=== PATIENT | female | born 1945 | race Caucasian/White ===

== ENCOUNTER 2019-10-26 09:24 | Outpatient (CLI) | payer MEDICARE, SELFPAY ==
--- NOTE | ~2019-10-26 | MM_ITS ---
EXAMINATION: MM screening marisol BI w barry HISTORY: Screening TECHNIQUE: Craniocaudal and mediolateral oblique 3-D tomosynthesis images were obtained and synthetic 2-D images were generated. CAD analysis was submitted and interpreted. COMPARISON: Comparison to multiple prior studies sequentially, with oldest reviewed study dated 09/13. BREAST PARENCHYMAL COMPOSITION: There are scattered areas of fibroglandular density. FINDINGS: Right breast asymmetries are stable. There is no evidence of suspicious mass, calcification , or architectural distortion to suggest malignancy in either breast. There has been no suspicious in terval change. IMPRESSION: 1. No mammographic evidence of malignancy. 2. Recommend routine screening mammography in one year. BI-RADS Category 2: Benign finding(s). Reviewed, dictated and finalized at location A.
== END 2019-10-26 09:25 | disposition home or self-care (01) ==
LOC: ANHIMG 09:29
PROVIDERS: PCP Family Medicine; Visit Provider Nurse Practitioner
DX: Z12.31 Encounter for screening mammogram for malignant neoplasm of breast (principal)
CPT/HCPCS: 77063; 77067

== ENCOUNTER 2020-01-03 09:36 | Outpatient (CLI) | payer MEDICARE, SELFPAY ==
--- NOTE | ~2020-01-03 | US_ITS ---
EXAMINATION: US thyroid EXAM DATE: 01/03/2020 10:20 INDICATION: Yearly follow-up. Previous right isthmus nodule biopsy. TECHNIQUE: Multiple grayscale and Doppler images of the thyroid were obtained (by a technologist who performed the scan) and subsequently reviewed. Individual nodules and recommendations may be reporte d in accordance with TI-RADS system as designated by the 2017 ACR White Paper TI-RADS committee. Comp kait is made to prior examination from 12/27/2018, ultrasound-guided biopsy report 01/26/2019. FINDINGS: The right thyroid lobe measures 4.3 x 1.5 x 1.7 cm, the left measuring 3.5 x 1.0 x 1.3 cm. Mildly het erogeneous thyroid echogenicity with scattered pulmonary nodules. Largest thyroid nodule is in the right side of the thyroid isthmus measuring 1.7 x 0.7 x 1.4 centime ters, solid (2 points), hypoechoic (2 points), wider than tall, smooth margin, containing punctate ec hogenic foci (3 points), category TR4 for this nodule. On prior study, images obtained with biopsy d imensions were reported at 1.8 x 0.8 x 1.5 cm. This is unchanged, correlate with those results. Other scattered subcentimeter nodules also do not appear significantly changed. IMPRESSION: Stable multinodular goiter. Reviewed, dictated and finalized at location A. IMPRESSION: Stable multinodular goiter.
== END 2020-01-03 09:37 | disposition home or self-care (01) ==
PROVIDERS: PCP Family Medicine; Visit Provider Otolaryngology
DX: E04.2 Nontoxic multinodular goiter (principal)
CPT/HCPCS: 76536

== ENCOUNTER → 2020-02-06 10:59 | Outpatient (CLI) | payer MEDICARE, SELFPAY ==
--- NOTE | ~2020-02-06 | MR_ITS ---
EXAMINATION: MR lumbar spine wo con EXAM DATE: 02/06/2020 11:36 INDICATION: lumbar radiculopathy lumbar radiculopathy . TECHNIQUE: Multi-sequential, multiplanar MR images of the lumbar spine were obtained without contrast . Sagittal T1, T2, T2 fat saturation images. Axial T2 weighted images. Comparison is made to prior examination from 03/10/2017. FINDINGS: There is 3 mm anterolisthesis L4 on L5. Mild to moderate loss of the L3-4 disc height, mild at L2-3 and L4-5. The conus medullaris terminates at the L1-2 level and has normal signal intensity and morphology. There are no suspicious marrow signal abnormalities. Paraspinal soft tissue is unrem arkable. Level by level evaluation: T12-L1: Disc does not extend beyond the endplate margin. Facet arthropathy: None. Neural foraminal stenosis: No stenosis. Central canal stenosis: No stenosis. L1-L2: Disc does not extend beyond the endplate margin. Facet arthropathy: None. Neural foraminal stenosis: No stenosis. Central canal stenosis: No stenosis. L2-L3: There is a mild diffuse disc bulge. Facet arthropathy: Mild bilateral. Neural foraminal stenosis: Mild left. Central canal stenosis: No stenosis. L3-L4: There is a mild to moderate diffuse disc bulge. Facet arthropathy: Mild to moderate. Neural foraminal stenosis: Mild bilateral. Central canal stenosis: Mild. L4-L5: There is a mild to moderate diffuse disc bulge. Facet arthropathy: Moderate, left greater than right . Ligamentum flavum enlargement . Neural foraminal stenosis: Mild to moderate right, mild left. Central canal stenosis: Mild to moderate. L5-S1: Disc does not extend beyond the endplate margin. Facet arthropathy: Mild to moderate. Neural foraminal stenosis: Mild right. Central canal stenosis: No stenosis. IMPRESSION: 1. Mild to moderate lumbar spondylosis. Reviewed, dictated and finalized at location B. ANALYST
== END ==
PROVIDERS: Visit Provider Nurse Practitioner Adult Health
DX: M47.26 Other spondylosis with radiculopathy, lumbar region (principal)
CPT/HCPCS: 72148

== ENCOUNTER 2020-11-04 09:00 | Outpatient (CLI) | payer MEDICARE, SELFPAY ==
--- NOTE | ~2020-11-04 | MM_ITS ---
EXAMINATION: MM screening marisol BI w barry HISTORY: Screening TECHNIQUE: Craniocaudal and mediolateral oblique 3-D tomosynthesis images were obtained and synthetic 2-D images were generated. CAD analysis was submitted and interpreted. COMPARISON: Comparison to multiple prior studies sequentially, with oldest reviewed study dated 09/13. BREAST PARENCHYMAL COMPOSITION: There are scattered areas of fibroglandular density. FINDINGS: There is no evidence of suspicious mass, calcification, or architectural distortion to sugg est malignancy in either breast. There has been no suspicious interval change. IMPRESSION: 1. No mammographic evidence of malignancy. 2. Recommend routine screening mammography in one year. BI-RADS Category 1: Negative Reviewed, dictated and finalized at location A.
--- NOTE | ~2020-11-04 | DEXA_ITS ---
Bone Density Report Name: Chula Dewey Age: 75 Sex: Female Ethnicity: White Date of : 1945 Indication: osteopenia; parental hip fracture; hysterectomy; postmenopausal Referring Provider: JERONIMO HARDING Study: Bone densitometry was performed. Exam Date: November 04, 2020 Accession number: [id number] Bone Density: Region BMD T-score Z-score Classification AP Spine (L1, L2, L3) 0.985 -0.3 2.2 Normal Femoral Neck (Left) 0.719 -1.2 1.0 Osteopenia Total Hip (Left) 0.906 -0.3 1.6 Normal Total Hip Bilateral Avg 0.933 -0.1 1.8 Normal Femoral Neck (Right) 0.794 -0.5 1.7 Normal Total Hip (Right) 0.958 0.1 2.0 Normal World Health Organization criteria for BMD impression classify patients as: Normal (T-score at or above -1.0), Osteopenia (T-score between -1.0 and -2.5), or Osteoporosis (T-score at or below -2.5). 10-year Fracture Risk(1): Major Osteoporotic Fracture 18% Hip Fracture 8.8% Reported Risk Factors: [place] (), Neck BMD=0.719, BMI=23.6, parental fracture (1) FRAX(R) Version 3.08. Fracture probability calculated for an untreated patient. Fracture probability may be lower if the patient has received treatment. Previous Exams: Region Exam Age BMD T-score BMD Change BMD Change Date g/cm2 vs Baseline vs Previous AP Spine(L1, L2, L3) 11/04/2020 75 0.985 -0.3 -0.007(-0.7%)# -0.040(-3.9%)* 10/21/2017 72 1.025 0.1 0.033(3.3%)# -0.043(-4.0%)* 09/13/2014 68 1.068 0.5 0.076(7.7%)# 0.076(7.7%)# 08/19/2011 65 0.992 -0.2 Total Hip(Left) 11/04/2020 75 0.906 -0.3 -0.060(-6.2%)# -0.036(-3.8%)* 10/21/2017 72 0.942 0.0 -0.023(-2.4%)# -0.037(-3.8%)* 09/13/2014 68 0.979 0.3 0.014(1.4%)# 0.014(1.4%)# 08/19/2011 65 0.965 0.2 Total Hip(Right) 11/04/2020 75 0.958 0.1 0.062(6.9%)# 0.150(18.5%)* 10/21/2017 72 0.808 -1.1 -0.088(-9.8%)# -0.185(-18.6%) 09/13/2014 68 0.993 0.4 0.097(10.9%)# 0.097(10.9%)# 08/19/2011 65 0.896 -0.4 *Denotes significance at 95% confidence level, LSC for AP Spine = 0.022 g/cm2, LSC for Total Hip = 0.027 g/cm2 Clinical Information Provided by Patient: Parent has had a hip fracture Has used the following medications: Calcium Has the following medical conditions: Hysterectomy Patient maximum height was 65.5 Menopause Age: 38 Onset of menses at age 10 Number of children 0 Impression: The patient has low bone mass, based o
== END 2020-11-04 09:01 | disposition home or self-care (01) ==
PROVIDERS: Visit Provider Obstetrics & Gynecology Gynecology
DX: Z12.31 Encounter for screening mammogram for malignant neoplasm of breast (principal); M85.852 Other specified disorders of bone density and structure, left thigh
CPT/HCPCS: 77063; 77067; 77080

== ENCOUNTER 2021-01-09 09:08 | Outpatient (CLI) | payer MEDICARE, SELFPAY ==
--- NOTE | ~2021-01-09 | US_ITS ---
EXAMINATION: US thyroid DATE: 01/09/2021 09:42 INDICATION: Thyroid nodule. TECHNIQUE: Multiple ultrasound images of the thyroid were obtained. COMPARISON: Ultrasound 01/03/2020, 12/27/2018 FINDINGS: The right thyroid lobe measures 4.4 x 1.5 x 1.9 cm. The left thyroid lobe measures 3.4 x 1.1 x 1.3 c m. In the right thyroid lobe, there is a 16 mm solid, hypoechoic, uyggf-tqlb-qbjg nodule with ill-de fined margin and punctate echogenic foci (TI-RADS TR5), stable from 01/26/2019 when biopsy was benign . In the right thyroid lobe, there is a 8 mm predominantly cystic nodule (TR1). In the right thyroid lobe, there is a 12 mm solid, hypoechoic, syxhz-fuog-ioad nodule with smooth margin without echogenic foci (TR4). In the left thyroid lobe, there is a 12 mm solid, isoechoic, wzeck-bkod-dahy nodule with ill-defined margin without echogenic foci (TR3). There are multiple subcentimeter nodules in the thy roid. IMPRESSION: 1. Multinodular goiter, stable from 12/27/2018. Thyroid ultrasound is recommended in one year. Reviewed, dictated and finalized at location A. IMPRESSION: 1. Multinodular goiter, stable from 12/27/2018. Thyroid ultrasound is recommende d in one year.
== END 2021-01-09 09:09 | disposition home or self-care (01) ==
PROVIDERS: Visit Provider Otolaryngology
DX: E04.2 Nontoxic multinodular goiter (principal)
CPT/HCPCS: 76536

== ENCOUNTER 2021-08-07 15:35 | Outpatient (CLI) | payer MEDICARE, SELFPAY ==
--- NOTE | ~2021-08-07 | US_ITS ---
EXAMINATION: US thyroid DATE: 08/07/2021 16:22 INDICATION: Nontoxic single thyroid nodule. TECHNIQUE: Multiple ultrasound images of the thyroid were obtained. COMPARISON: Ultrasound 01/09/2021, 12/27/18 FINDINGS: The right thyroid lobe measures 4.0 x 1.9 x 1.3 cm. The left thyroid lobe measures 3.5 x 1.3 x 1.3 c m. In the right thyroid lobe, there is a 1.6 cm solid, hypoechoic, pyzce-fair-ncwz nodule with ill-d efined margin and punctate echogenic foci (TI-RADS TR5), stable from 01/26/19 when biopsy was benign. In the right thyroid lobe, there is a 9 mm solid, hypoechoic, nnroj-vafn-ievy nodule with smooth mar gin without echogenic foci (TR4). In the left thyroid lobe, there is a 5 mm mixed solid and cystic, h ypoechoic, xdkch-wczq-bmws nodule with smooth margin without echogenic foci (TR3). In the left thyroi d lobe, there is an 8 mm solid, isoechoic, udkxg-ebdf-looh nodule with ill-defined margin without ech ogenic foci (TR3). IMPRESSION: 1. Multinodular goiter, likely not clinically significant. No follow-up is needed. Reviewed, dictated and finalized at location A. IMPRESSION: 1. Multinodular goiter, likely not clinically significant. No follow-up is need ed.
== END 2021-08-07 15:36 | disposition home or self-care (01) ==
PROVIDERS: Visit Provider Otolaryngology
DX: E04.2 Nontoxic multinodular goiter (principal)
CPT/HCPCS: 76536

== ENCOUNTER 2021-12-03 01:43 | Day surgery (SDC) | payer MEDICARE, SELFPAY ==
[2021-11-19 15:19] VITALS: BMI 23.3
[2021-12-03 08:19] VITALS: BP 148/50; PULSE 66; RESP 18; TEMP 36.1; O2SAT 100
[2021-12-03] MEDS: LACTATED RINGERS 1,000 ML 150 ML IV CONT (08:23)
--- NOTE | 2021-12-03 08:29 | P.PNAN_ITS ---
Anes - Initial Pre Proc Eval Procedure: Operation Date: 12/03/21 09:15 Proposed Procedures p Esophagogastroduodenoscopy - Rolf Blackburn MD Date/Time: 12/03/21 08:29 Surgeon: Rolf Blackburn MD Pre Op Diagnosis: dysphagia Patient Data Age: 76 Gender: F Height: 1.65 m Weight: 64.9 kg Last Vital Signs Temp 97.0 F L 12/03/21 08:19 Pulse 66 12/03/21 08:19 Resp 18 12/03/21 08:19 BP 148/50 H 12/03/21 08:19 Pulse Ox 100 12/03/21 08:19 O2 Del Method Room Air 12/03/21 08:19 Allergies Allergy/AdvReac Type Severity Reaction Status Date / Time No Known Allergies Allergy Verified 12/03/21 08:17 Home Medications Medication Instructions Recorded Confirmed Type B-complex with vitamin C 1 cap PO DAILY 11/18/21 11/19/21 History fluticasone furoate 100 1 inh inhalation .prn 11/18/21 11/19/21 History mcg/actuation blister powder for inhalation pravastatin 40 mg tablet 40 mg PO .every other day 11/18/21 11/19/21 History Patient hx anesthesia problems: none Family hx anesthesia problems: none Results Review: All pre-operative results and documents have been reviewed as part of the pre- operative evaluation. [facility] Past Medical History Medical History (Updated 11/18/21 @ 09:41 by Rolf Blackburn MD) History of thyroid nodule Thyroid nodule Family History Family History Father Hypertension Social History Social History Smoking status: Never smoker Alcohol intake: never Substance use: never Substance use type: does not use Living arrangements: with friend(s) Spiritual care concerns: No Anes - Eval Final PreProcedure Day of Procedure 12/03/21 08:29 Patient weight: normal Heart: regular rate and rhythm Lungs: clear to auscultation Airway: Mallampati scale class II Neurological: alert and oriented Last oral intake: >/= 8 hours ASA classification: II Emergent: no Anesthetic plan: proceed Anesthesia type and monitoring: general GIVS and standard monitoring Results Review: All pre-operative results and documents have been reviewed as part of the pre- operative evaluation. Informed Consent: The patient's anesthetic plan and its attendant risks and benefits were discussed with the patient/family/POA. Questions were solicited and answers provided to the satisfaction of the patient/family/POA.
--- NOTE | 2021-12-03 08:46 | WPDHPUPDATE1 ---
History and Physical Update Update Date/Time: 12/03/21 08:46 History and Physical has been reviewed, including an updated exam of the patient. There are NO changes in the patient's condition. Risks, benefits, and alternatives have been discussed and questions answered. Patient agrees to proceed with procedure.
[2021-12-03 09:06] VITALS: BP 133/72; PULSE 67; RESP 20; O2SAT 100
[2021-12-03 09:16] VITALS: BP 143/86; PULSE 65; RESP 15; O2SAT 100
[2021-12-03 09:26] VITALS: BP 141/85; PULSE 61; RESP 13; O2SAT 100
== END 2021-12-03 09:40 | disposition home or self-care (01) ==
PROVIDERS: PCP Internal Medicine; Visit Provider Internal Medicine Gastroenterology
PROC: 0DJ08ZZ Inspection of Upper Intestinal Tract, Via Natural or Artificial Opening Endoscopic (ICD-10-PCS; CPT 43235; principal; 2021-12-03 09:15)
DX: R13.19 Other dysphagia (principal); E04.1 Nontoxic single thyroid nodule
CPT/HCPCS: 43450; 43235; J2704; J7120

== ENCOUNTER → 2021-12-15 10:37 | Outpatient (CLI) | payer MEDICARE, SELFPAY ==
--- NOTE | ~2021-12-15 | MM_ITS ---
EXAMINATION: MM screening marisol BI w barry HISTORY: ... Screening TECHNIQUE: Craniocaudal and mediolateral oblique 3-D tomosynthesis images were obtained and synthetic 2-D images were generated. Bilateral rotated lateral CC views. .CAD analysis was submitted and inter preted. COMPARISON: 8 06/2020, 10/22/2019, 10/23/2018 bilateral screening mammogram examinations BREAST PARENCHYMAL COMPOSITION: There are scattered areas of fibroglandular density. FINDINGS: There is no evidence of suspicious mass, calcification, or architectural distortion to sugg est malignancy in either breast. There has been no suspicious interval change. IMPRESSION: 1. No mammographic evidence of malignancy. 2. Recommend routine screening mammography in one year. BI-RADS Category 1: Negative Reviewed, dictated and finalized at location A.
== END ==
PROVIDERS: PCP Internal Medicine; Visit Provider Obstetrics & Gynecology Gynecology
DX: Z12.31 Encounter for screening mammogram for malignant neoplasm of breast (principal)
CPT/HCPCS: 77063; 77067

== ENCOUNTER 2022-01-20 09:25 | Outpatient (RCR) | payer MEDICARE, SELFPAY ==
--- NOTE | 2022-01-20 10:59 | STOPEVAL1 ---
Assessment and note entered by Griselda Henriquez ANTHROPOLOGY PROFESSOR Evaluation Information Assessment Status Evaluation Reported Pain Level Pain Score 0: Self Report Assessment ST Clinical Summary Chula Dewey is a 76 year old female with a past medical history significant for dysphagia as a result of a thyroid cyst. Patient is anticipating surgery to remove the cyst and describes compensatory strategies she is using to reduce difficulty in swallowing solid food. Patient was referred to our clinic by her ENT with concerns of ability to consistently produce an intelligible voice. Patient describes having tightness in her throat when attempting to talk more, especially in larger groups, and often becomes hoarse and unintelligible. Patient completed the Voice Handicap Index with a score of 36 out of 120, placing her in a moderate voice severity rating when describing the effect her voice has on her life. Patient was 100% intelligible throughout the session and demonstrated adequate breath support required for producing a consistent voice. When completing sustained phonation tasks, patient's voice demonstrated frequent, but mild voice breaks and vocal quality was able to quickly return to normal . Patient is soon leaving town for the winter; therefore, was provided a home exercise program to target voice relaxation and voice strengthening. Patient demonstrated use of exercises with minimal cues after demonstration. Patient to complete exercises 2x/day to increase perceptual quality of voice in order to increase quality of life by participating in social activities. No ST services indicated at this time. Thank you for this referral. Plan of Care Interventions Treatment of Voice ST Services Indicated No These treatments will address the objective and functional deficits as defined above. The patient will be advanced safely and appropriately in order for the patient to progress towards his/her prior level of function. Additional exercises will be introduced and as well as a comprehensive home exercise program upon discharge, if needed, ?to ensure carryover of functional gains achieved in the clinic. This treatment plan has been reviewed and agreement upon by the patient.
== END 2022-04-19 14:33 | disposition home or self-care (01) ==
LOC: ANHGOSHST 09:25
PROVIDERS: PCP Internal Medicine; Visit Provider Otolaryngology
DX: R49.9 Unspecified voice and resonance disorder (principal); R13.10 Dysphagia, unspecified
CPT/HCPCS: 92524

== ENCOUNTER → 2022-07-27 11:05 | Outpatient (CLI) | payer MEDICARE, SELFPAY ==
--- NOTE | ~2022-07-27 | US_ITS ---
EXAMINATION: US thyroid DATE: 07/27/2022 11:21 INDICATION: Thyroid nodule TECHNIQUE: Multiple ultrasound images of the thyroid were obtained. COMPARISON: None. FINDINGS: The right thyroid lobe measures 4.3 x 1.5 x 1.4 cm. The left thyroid lobe measures 3.0 x 1.0 x 1 poi nt cm. No interval change in a 1.6 cm wider than tall solid hypoechoic nodule with ill-defined margin s with single echogenic focus (TI-RADS 5) in the right thyroid lobe which is unchanged since 01/27/20 19 at which time a prior biopsy was benign. There is a second unchanged 9 mm than tall solid hypoecho ic nodule with smooth margins and without echogenic foci (TI-RADS 4). Right thyroid lobe. Also unchan ged is a 7 mm wider than tall, mixed solid and cystic nodule with smooth margins, hypoechoic solid co mponent and without echogenic foci (TI-RADS 3). 6 mm spongiform TI RADS 1 nodule in the left thyroid lobe. Unchanged 7 mm round solid isoechoic nodule with ill-defined margins and with few internal echo genic foci (TI-RADS 4) in the left thyroid lobe. IMPRESSION: 1. Stable appearance of a multinodular goiter with prior benign biopsy of the only nodule which met c riteria for biopsy. Reviewed, dictated and finalized at location A. IMPRESSION: 1. Stable appearance of a multinodular goiter with prior benign biopsy of the o nly nodule which met criteria for biopsy.
== END ==
PROVIDERS: PCP Internal Medicine; Visit Provider Otolaryngology
DX: E04.2 Nontoxic multinodular goiter (principal)
CPT/HCPCS: 76536

== ENCOUNTER 2022-12-18 10:28 | Outpatient (CLI) | payer MEDICARE, SELFPAY ==
--- NOTE | ~2022-12-18 | MM_ITS ---
EXAMINATION: MM screening marisol BI w barry HISTORY: Screening mammogram TECHNIQUE: Craniocaudal and mediolateral oblique 3-D tomosynthesis images were obtained and synthetic 2-D images were generated. Bilateral rotated lateral CC views. CAD analysis was submitted and interp reted. COMPARISON: 12/15/2021, , 10/22/2019 bilateral screening mammogram examinations BREAST PARENCHYMAL COMPOSITION: There are scattered areas of fibroglandular density. FINDINGS: Scattered bilateral benign calcifications are again present. There is no evidence of suspic ious mass, calcification, or architectural distortion to suggest malignancy in either breast. There h as been no suspicious interval change. IMPRESSION: 1. No mammographic evidence of malignancy. 2. Recommend routine screening mammography in one year. BI-RADS Category 1: Negative Reviewed, dictated and finalized at location A.
== END 2022-12-18 10:29 | disposition home or self-care (01) ==
PROVIDERS: PCP Internal Medicine; Visit Provider Obstetrics & Gynecology Gynecology
DX: Z12.31 Encounter for screening mammogram for malignant neoplasm of breast (principal)
CPT/HCPCS: 77063; 77067

== ENCOUNTER 2023-07-20 10:17 | Outpatient (CLI) | payer MEDICARE, SELFPAY ==
--- NOTE | ~2023-07-20 | DEXA_ITS ---
Bone Density Report Name: FLYNN JOYCE Age: 77 Sex: Female Ethnicity: White Date of : 1945 Indication: postmenopausal; screening for osteoporosis; parental hip fracture; height loss; hysterectomy; Referring Provider: Rachid, Crystal Study: Bone densitometry was performed. Exam Date: July 20, 2023 Accession number: [id number] Bone Density: Region BMD T-score Z-score Classification AP Spine (L1, L2, L3) 0.936 -0.7 1.9 Normal Femoral Neck (Left) 0.706 -1.3 1.0 Osteopenia Total Hip (Left) 0.818 -1.0 1.0 Normal Femoral Neck (Right) 0.689 -1.4 0.9 Osteopenia Total Hip (Right) 0.831 -0.9 1.1 Normal Total Hip Mean 0.825 -1.0 1.1 Normal World Health Organization criteria for BMD impression classify patients as: Normal (T-score at or above -1.0), Osteopenia (T-score between -1.0 and -2.5), or Osteoporosis (T-score at or below -2.5). 10-year Fracture Risk(1): Major Osteoporotic Fracture 22% Hip Fracture 12% Reported Risk Factors: [place] (), Neck BMD=0.689, BMI=23.3, parental fracture (1) FRAX(R) Version 3.08. Fracture probability calculated for an untreated patient. Fracture probability may be lower if the patient has received treatment. Previous Exams: Region Exam Age BMD T-score BMD Change BMD Change Date g/cm2 vs Baseline vs Previous AP Spine(L1, L2, L3) 07/20/2023 77 0.936 -0.7 -0.101* -0.088* 08/14/2008 62 1.025 0.1 -0.013 -0.013 08/09/2006 60 1.037 0.2 Total Hip(Left) 07/20/2023 77 0.818 -1.0 -0.139* -0.077* 08/14/2008 62 0.895 -0.4 -0.062* -0.062* 08/09/2006 60 0.957 0.1 Total Hip(Right) 07/20/2023 77 0.831 -0.9 -0.147* -0.086* 08/14/2008 62 0.917 -0.2 -0.061* -0.061* 08/09/2006 60 0.978 0.3 *Denotes significance at 95% confidence level, LSC for AP Spine = 0.022 g/cm2, LSC for Total Hip = 0.027 g/cm2 Clinical Information Provided by Patient: Parent has had a hip fracture Has used the following medications: Calcium Has the following medical conditions: Hysterectomy Patient maximum height was 65.5 Menopause Age: 37 Drinks caffeinated beverages Onset of menses at age 12 Number of children 0 Impression: The patient has low bone mass, based on the Right Femoral Neck T-score. The patient has an estimated ten-year risk of hip fracture of 12% and an estimated ten-year risk of
== END 2023-07-20 10:18 ==
LOC: MICIMG 10:18
PROVIDERS: PCP Internal Medicine; Visit Provider Internal Medicine
DX: Z78.0 Asymptomatic menopausal state (principal); M85.852 Other specified disorders of bone density and structure, left thigh; M85.851 Other specified disorders of bone density and structure, right thigh
CPT/HCPCS: 77080

== ENCOUNTER 2023-09-26 10:03 | Outpatient (CLI) | payer MEDICARE, SELFPAY ==
--- NOTE | ~2023-09-26 | XR_ITS ---
EXAMINATION: XR hand RT min 3V DATE: 09/26/2023 10:15 INDICATION: Right hand arthritis and pain. TECHNIQUE: 3 views of right hand were obtained. COMPARISON: None. FINDINGS: Bone alignment is normal. No fracture. There is severe osteoarthritis of first carpometacar pal joint, mild osteoarthritis of triscaphe joint and first and second metacarpophalangeal joints, an d mild osteoarthritis of first interphalangeal joint and second-fifth distal interphalangeal joints. IMPRESSION: 1. Polyarticular osteoarthritis. Reviewed, dictated and finalized at location A.
== END 2023-09-26 10:04 | disposition home or self-care (01) ==
LOC: ANHIMG 10:05
PROVIDERS: PCP Internal Medicine; Visit Provider Plastic Surgery
DX: M18.11 Unilateral primary osteoarthritis of first carpometacarpal joint, right hand (principal)
CPT/HCPCS: 73130

== ENCOUNTER 2023-12-23 10:00 | Outpatient (CLI) | payer MEDICARE, SELFPAY ==
--- NOTE | ~2023-12-23 | MM_ITS ---
EXAMINATION: MM screening [facility] BI w barry HISTORY: Screening mammogram TECHNIQUE: Craniocaudal and mediolateral oblique 3-D tomosynthesis images were obtained and synthetic 2-D images were generated. CAD analysis was submitted and interpreted. COMPARISON: 12/18/2022, 12/15/2021, 11/04/2020, 10/26/2019, 10/23/2018 BREAST PARENCHYMAL COMPOSITION:Not Dense. There are scattered areas of fibroglandular density. FINDINGS: No suspicious mass, calcification, or architectural distortion are identified in either fariha ast to suggest malignancy. There has been no suspicious interval change. IMPRESSION: No mammographic evidence of malignancy. Recommend routine screening mammography in one year. BI-RADS Category 1: Negative Reviewed, dictated and finalized at location .
== END 2023-12-23 10:01 | disposition home or self-care (01) ==
LOC: ANHIMG 10:04
PROVIDERS: PCP Internal Medicine; Visit Provider Internal Medicine
DX: Z12.31 Encounter for screening mammogram for malignant neoplasm of breast (principal)
CPT/HCPCS: 77063; 77067

== ENCOUNTER 2024-01-12 06:24 | Day surgery (SDC) | payer MEDICARE, SELFPAY ==
--- NOTE | ~2024-01-12 | XR_ITS ---
EXAMINATION: XR surgery orthopedic DATE: 01/12/2024 08:51 INDICATION: Right thumb basal joint arthroplasty TECHNIQUE: 4 fluoroscopic images of the right carpus were obtained during procedure performed by Dr. Lentz. Radiologist was not present for the imaging or procedure. The amount of fluoroscopy time used during this procedure was 0.2 minutes. Total DAP was 0.803 cGycm^2 COMPARISON: None. FINDINGS: Initial image demonstrates moderate osteoarthritis at the first carpometacarpal joint. Subsequent natalia ges demonstrate postoperative change of a first carpal metacarpal suspension arthroplasty with resect ion of the trapezium and anchoring button is along the margins of the proximal metaphyseal regions of the first and second metacarpals. Alignment remains otherwise normal. No fractures. Joint spaces sammy ear relatively preserved. IMPRESSION: 1. Expected appearance post first carpal metacarpal suspension arthroplasty. See procedure note for f urther detail. Reviewed, dictated and finalized at location A. IMPRESSION: 1. Expected appearance post first carpal metacarpal suspension arthroplasty. Se e procedure note for further detail.
--- NOTE | 2024-01-12 06:59 | PM.HPGS ---
History of Present Illness History of Present Illness Chief complaint: Unilateral Primary OA First Carpometacarpal Joint Narrative: Patient seen and examined in pre-operative holding area. No interval change in medical history or symptoms. Patient recalls previous discussion of benefits and alternatives to procedure. Continues to desire to proceed with right basal joint arthroplasty. Reviewed procedure, post-op expectations and risks including but not limited to bleeding, infection, injury to tendon/nerve/vessel, decreased hand function, stiffness, RSD, no change or worsening of symptoms, hardware complications, failure of repair. I discussed the possible use of assistants and their participation in the case. Patient stated understanding and signed the consent form wishing to proceed. Review of Systems Review of Systems: All systems reviewed & are unremarkable except as noted in HPI and below PMFSH Past Medical History Medical History (Updated 01/11/24 @ 12:01 by Casey Joseph DO) History of thyroid nodule Hyperlipidemia Thyroid nodule Surgical History Surgical History (Updated 01/11/24 @ 12:01 by Casey Joseph DO) History of hysterectomy Family History Family History Father Hypertension Social History Social History Smoking status: Never smoker Alcohol intake: never Substance use: never Substance use type: does not use Living arrangements: with friend(s) Spiritual care concerns: No Meds Home Medications and Allergies Home Medications Medication Instructions Recorded Confirmed Type B-complex with vitamin C 1 cap PO DAILY 11/18/21 01/12/24 History fluticasone furoate 100 1 inh inhalation .prn 11/18/21 01/12/24 History mcg/actuation blister powder for inhalation rosuvastatin 5 mg tablet 5 mg PO DIRECTED 12/27/23 01/12/24 History cephalexin 500 mg capsule 500 mg PO Q12H #14 caps 01/12/24 Rx hydrocodone 5 mg-acetaminophen 325 1 tablet PO Q6H PRN pain #12 tabs 01/12/24 Rx mg tablet Allergies Allergy/AdvReac Type Severity Reaction Status Date / Time No Known Allergies Allergy Verified 01/12/24 06:49 Exam Narrative: unchanged Assessment and Plan Assessment and plan (1) Osteoarthritis of first carpometacarpal joint of right hand: Qualifiers: Osteoarthritis type: primary Qualified Code(s): M18.11 - Unilateral primary osteoarthritis of first carpometacarpal joint, right hand Code(s): M18.11 - Unilateral primary osteoarthritis of first carpometacarpal joint, right hand Status: Acute Assessment and Plan: cont as above
--- NOTE | 2024-01-12 07:00 | W.PM.PROC2 ---
Procedure Note - Detailed Date of Procedure 01/12/24 Pre-op Diagnosis right basal joint arthritis Post-op Diagnosis Same Procedure Performed right basal joint arthroplasty with mini-tightrope Surgeon Zakiya Lentz MD Quantitative Strategy Analyst therese fleming pa-c Anesthesia General and MAC Description of Procedure INFORMED CONSENT: The patient was seen and examined and marked in the pre-op area.? The patient signed the consent form. PROCEDURE IN DETAIL:The patient taken back to OR on the stretcher in supine position. Time out performed with anesthesia, surgeon and staff agreeing on patient's name site and surgery to be performed SCDs were placed on the lower extremities and inflated. A tourniquet was placed on {right} upper extremity and antibiotics given IV After anesthesia administered sedation I injected {10}cc 1%lido with epi and 0.5% marcaine plain at the operative site and for median and radial nerve block The?{right upper extremity}?was prepped and draped in sterile fashion the??{right upper extremity} was? exsanguinated with Esmarch bandage and tourniquet inflated to 250mmHg I proceeded with making a longitudinal incision over the right thumb trapezium between the 1st and 3rd extensor compartments through skin and dermis with a 15 blade scalpel. Littler scissors were used to spread down to the joint capsule. The extensor tendons and dorsal branch of the radial sensory nerve were reflected and protected throughout the procedure. I identified the dorsal branch of the radial artery which was also protected at the proximal aspect of the incision throughout the procedure. I proceeded with using 15 blade scalpel elevated capsular flaps and then proceeded with dissection around the trapezium. Mini C-arm was used to verify the position of the trapezium and confirm proper resection. I completed the trapeziectomy using mcglamery elevator and albina clamp. Multiple views of fluoroscopy were taken noting resection of the trapezium. The FCR appeared intact after resection. I Irrigated with normal saline. I proceeded with making an incision over the proximal aspect of the 2nd metacarpal base on the dorsum of the hand with a 15 blade scalpel. Littler scissors were used to spread through subcutaneous tissue down to periosteum and a branch of dorsal radial sensory was identified and protected. Periosteal elevator was used to reflect the periosteum on the ulnar aspect. Next using the Arthrex mini C ring guided proceeded with placing the double gauged looped K-wire in a radial to ulnar direction from the base of the thumb metacarpal out of the 2nd metacarpal base. This was verified on multiple views of fluoroscopy. The thumb was maintained in good position. I proceeded with then placing the mini tight rope in standard fashion utilizing the k-wire and initially secured it with the button on the 2nd metacarpal. Live fluoroscopy noted there was no impingement in range of motion there was no subsidence. The button was sewn down in this position. I irrigated with normal saline. I covered the 2nd metacarpal suture and button with periosteum using 3-0 Vicryl suture. The thumb capsule was closed with 3-0 Vicryl suture. Skin was closed with 3-0 Vicryl for dermis and 4-0 chromic. A dressing of xeroform followed by 4 x 4, Kraig, thumb spica splint and Nino bandage was then applied after the tourniquet was let down noting that the fingers were warm and well perfused. Complications: None Estimated blood loss: 3 cc Disposition: Patient tolerated the procedure well and will be going home later today Therese Fleming PA-C was essential for positioning, retraction, fluoro, closure and dressing placement [facility] Billing Surgery - Charge Forward: Surgery Billing ([id number] for therese)
[2024-01-12 07:14] VITALS: BP 156/70; PULSE 73; RESP 18; TEMP 36.4; O2SAT 100; BMI 22.9
[2024-01-12] MEDS: LACTATED RINGERS 1,000 ML 30 ML IV CONT (07:33)
--- NOTE | 2024-01-12 07:55 | WPDANESEPPF ---
Anes - Initial Pre Proc Eval Procedure: Operation Date: 01/12/24 08:00 Proposed Procedures p Right Thumb Basal Joint Arthroplasty with Mini Tightrope - Zakiya Lentz MD Date/Time: 01/12/24 07:55 Surgeon: Zakiya Lentz MD Pre Op Diagnosis: Unilateral Primary OA First Carpometacarpal Joint Patient Data Age: 78 Gender: F Height: 1.65 m Weight: 62.5 kg Last Vital Signs Temp 97.6 F 01/12/24 07:14 Pulse 73 01/12/24 07:14 Resp 18 01/12/24 07:14 BP 156/70 H 01/12/24 07:14 Pulse Ox 100 01/12/24 07:14 O2 Del Method Room Air 01/12/24 07:14 Allergies Allergy/AdvReac Type Severity Reaction Status Date / Time No Known Allergies Allergy Verified 01/12/24 06:49 Home Medications Medication Instructions Recorded Confirmed Type B-complex with vitamin C 1 cap PO DAILY 11/18/21 01/12/24 History fluticasone furoate 100 1 inh inhalation .prn 11/18/21 01/12/24 History mcg/actuation blister powder for inhalation rosuvastatin 5 mg tablet 5 mg PO DIRECTED 12/27/23 01/12/24 History cephalexin 500 mg capsule 500 mg PO Q12H #14 caps 01/12/24 Rx hydrocodone 5 mg-acetaminophen 325 1 tablet PO Q6H PRN pain #12 tabs 01/12/24 Rx mg tablet Patient hx anesthesia problems: none Family hx anesthesia problems: none Results Review: All pre-operative results and documents have been reviewed as part of the pre-operative evaluation. [facility], [facility] Past Medical History Medical History Dysphagia History of thyroid nodule Hyperlipidemia Osteoarthritis of first carpometacarpal joint of right hand Thyroid nodule Surgical History Surgical History History of hysterectomy Family History Family History Father Hypertension Social History Social History Smoking status: Never smoker Alcohol intake: never Substance use: never Substance use type: does not use Living arrangements: with friend(s) Spiritual care concerns: No Anes - Eval Final PreProcedure Day of Procedure 01/12/24 07:55 Patient weight: normal Lungs: clear to auscultation Airway: Mallampati scale class II Neurological: alert and oriented Last oral intake: >/= 8 hours ASA classification: II Anesthetic plan: proceed Anesthesia type and monitoring: general GIVS and standard monitoring Results Review: All pre-operative results and documents have been reviewed as part of the pre-operative evaluation. Informed Consent: The patient's anesthetic plan and its attendant risks and benefits were discussed with the patient/family/POA. Questions were solicited and answers provided to the satisfaction of the patient/family/POA.
[2024-01-12] MEDS: ceFAZolin SODIUM 2 GM/20 ML SW SYRINGE IV PUSH (08:04)
[2024-01-12] MEDS: LIDO 1%/EPINEPHRINE 1:100,000 10 ML VIAL 5 ML INFILTRATE (08:39)
[2024-01-12] MEDS: BUPivacaine HCL 0.5% 10 ML AMP 5 ML INFILTRATE (08:39)
[2024-01-12] MEDS: BACITRACIN ZINC OINTMENT 0.9 GRAM PACKET 1 PACKET TOPICAL (08:49)
[2024-01-12 09:01] VITALS: BP 146/61; PULSE 74; RESP 20; O2SAT 100
[2024-01-12 09:15] VITALS: BP 156/71; PULSE 77; RESP 18; O2SAT 98
[2024-01-12] MEDS: oxyCODONE HCL (*CRX) 5 MG TAB IR PO (09:33)
[2024-01-12 09:45] VITALS: BP 156/65; PULSE 75; RESP 18; O2SAT 95
--- NOTE | 2024-01-12 12:05 | WPDANESPN ---
Anes - Prog Note Post-Op Date/Time: 01/12/24 12:05 Cardiovascular status: normal Respiratory status: normal Airway patency: baseline Mental status: baseline Post-Op hydration status: normal Vital Signs: Last Vital Signs Temp 36.4 C 01/12/24 07:14 Pulse 75 01/12/24 09:45 Resp 18 01/12/24 09:45 BP 156/65 H 01/12/24 09:45 Pulse Ox 95 01/12/24 09:45 O2 Del Method Room Air 01/12/24 09:45 Pain Score (VAS): 5 I/O: Intake & Output 01/11/24 01/12/24 01/12/24 23:59 07:59 15:59 Intake Total 200 Balance 200 Post-procedural complaints: none Patient Feedback: Patient satisfied with anesthetic care. Other Findings: Patient vital signs back to baseline. Patient denies nausea and vomiting. Patient's pain under control. Patient OK for discharge.
== END 2024-01-12 10:15 | disposition home or self-care (01) ==
PROVIDERS: PCP Internal Medicine; Visit Provider Plastic Surgery
PROC: (CPT 25447; principal; 2024-01-12 08:00)
DX: M18.11 Unilateral primary osteoarthritis of first carpometacarpal joint, right hand (principal)
CPT/HCPCS: 25447; 99199

== ENCOUNTER 2024-01-12 09:10 | Outpatient (NON) | payer MEDICARE, SELFPAY | END 2024-01-12 09:11 | disposition home or self-care (01) | PROVIDERS: PCP Internal Medicine; Visit Provider Plastic Surgery | DX: M18.11 Unilateral primary osteoarthritis of first carpometacarpal joint, right hand (principal) | CPT/HCPCS: 88309; 88311 ==

== ENCOUNTER 2024-01-24 14:34 | Outpatient (CLI) | payer MEDICARE, SELFPAY ==
--- NOTE | ~2024-01-24 | XR_ITS ---
XR hand RT 2V Ordering provider: Lisa Das PA-C History: . s/p basal joint arthroplasty . Comparison: September 26, 2023 FINDINGS: BONES: No acute fracture or dislocation. Postoperative changes of the status of his removal of the tr apezium bone is noted. Postoperative changes in the first and second metacarpal bones. JOINT SPACES: Narrowing of the proximal and distal interphalangeal joints. SOFT TISSUES: Normal. IMPRESSION: No acute osseous abnormality right hand. Postoperative changes in the trapezium, first and second metacarpal bone. Reviewed, dictated and finalized at location A.
== END 2024-01-24 14:35 | disposition home or self-care (01) ==
LOC: ANHIMG 14:35
PROVIDERS: PCP Internal Medicine; Visit Provider Physician Assistant Surgical
DX: M18.11 Unilateral primary osteoarthritis of first carpometacarpal joint, right hand (principal)
CPT/HCPCS: 73120

== ENCOUNTER 2024-02-21 10:33 | Outpatient (CLI) | payer MEDICARE, SELFPAY ==
--- NOTE | ~2024-02-21 | XR_ITS ---
XR hand RT min 3V Ordering provider: Lisa Das PA-C History: . HX RT HAND SURGERY X 6 WEEKS AGO . Comparison: None. FINDINGS: BONES: No acute fracture or dislocation. Radiopaque shadows projected over the first and second metacarpal bones most likely postoperative. JOINT SPACES: Narrowing of the distal interphalangeal joints. Periarticular osteopenia. Narrowing of the radiocarpal joint. SOFT TISSUES: Normal. IMPRESSION: No acute osseous abnormality right hand. Postoperative changes. Polyarticular osteoarthritic change. Reviewed, dictated and finalized at location A. TENDER
== END 2024-02-21 10:34 | disposition home or self-care (01) ==
PROVIDERS: PCP Internal Medicine; Visit Provider Physician Assistant Surgical
DX: M18.11 Unilateral primary osteoarthritis of first carpometacarpal joint, right hand (principal); M19.041 Primary osteoarthritis, right hand
CPT/HCPCS: 73130

== ENCOUNTER 2024-09-07 09:57 | Outpatient (CLI) | payer MEDICARE, SELFPAY ==
--- NOTE | ~2024-09-07 | US_ITS ---
EXAMINATION: US thyroid DATE: 09/07/2024 11:02 INDICATION: Multinodular goiter TECHNIQUE: Multiple ultrasound images of the thyroid were obtained. COMPARISON: None. FINDINGS: The right thyroid lobe measures 4.3 x 1.5 x 1.4 cm. The left thyroid lobe measures 3.0 x 1.0 x 1.1 c m. Solid wider than tall hypoechoic nodule with ill-defined margins and without echogenic foci at the right thyroid lobe along the isthmus (TI-RADS 5, highly suspicious , FNA if >=1.0 cm, annual followu p is >0.5 cm). There is a second solid wider than tall hypoechoic nodule with smooth margins and with out echogenic foci in the inferior right thyroid lobe(TI-RADS 4, moderately suspicious , FNA if >=1.5 cm, annual followup is >=1 cm). There are couple additional 8 mm mixed solid and cystic nodule with hypoechoic solid component, smooth margins and without echogenic foci in the left and right thyroid l obes (TI-RADS 3, mildly suspicious , FNA if >=2.5 cm, annual followup is >=1.5 cm). IMPRESSION: 1. Multinodular goiter. Recommend ultrasound-guided biopsy of the largest 1.3 similar TI RADS 5 right thyroid nodule at the base of the thyroid isthmus. Reviewed, dictated and finalized at location A. IMPRESSION: 1. Multinodular goiter. Recommend ultrasound-guided biopsy of the largest 1.3 s imilar TI RADS 5 right thyroid nodule at the base of the thyroid isthmus.
--- OUTSIDE RECORDS SUMMARY | 2024-09-07 10:04 | XMS_ITS | Patient Health Record ---
Author Organization [facility] Address [address] [place] [address] Care Team Providers Care Event Sales Manager Name Role Phone Jimy Pratt MD, Yves Primary Care Provider [phone] Yves Ahn Jr Unavailable Unavai lable ALLERGIES No Known Allergies REASON FOR REFERRAL No Information MEDICATIONS Medication SIG (Take, Route, Fr equency, Duration) Notes Start Date End Date Status Fluticasone Propionate Active IMMUNIZATIONS Vaccine Route Administration Date Status Comme nts pneumoccocal Unknown 04/04/2018 Administered Influenza Unknown 01/06/2021 Refused SOCIAL HISTORY Tobacco Use: Social History Observation Description Date Details (start date - stop date) Never Smoker NA - NA Sex Assigned At : Social History Observation Description Sex Assigned At Unknown Tobacco Use: Question Answer Notes Patient is a: nonsmoker Alcohol screening: Question Answer Notes Did you have a drink containing alcohol in the p ast year? No Points 0 Interpretation Negative PROBLEMS Problem Type ICD Code Onset Dates Problem Status W/U Status Risk SNOMED Code Notes Problem Pain in lateral right lower extremity (M79.604) 01/06/2019 Active confirmed [id number] PLAN OF TREATMENT No Information Insurance Providers Payer Name Payer Address Payer Phone Subscriber Number Group Number Insured Name Patient Relationship to Insured Coverage Start Date Coverage End Date Medicare [address] [place] [address] [id number] Chula Dewey Self - patient is the insured [facility] [address] [place] [address] [phone] [id number] Chula Dewey Self - patient is the insured MEDICAL (GENERAL) HISTORY Surgical History Surgery Date(Month/Year) Synovial cyst removal (L 07/07) 2013
--- OUTSIDE RECORDS SUMMARY | 2024-09-07 10:04 | XMS_ITS | Clinical Summary ---
Author Organization [facility] Address [address] [place] [address] Care Team Providers Care Adult Neurologist Name Role Phone Alvin Vallejo MD Primary Care Provider [phone] Allergies No known active allergies Medications fluticasone (FLONASE) 50 mcg/actuation nasal spray Administer 2 sprays into each nostril daily Active estradiol (ESTRACE) 0.5 mg tablet Take 0.5 mg by mouth daily. 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 Gender Identity Not on file Sexual Orientation Not on file Obstetrics History Last Filed Vital Signs Vital Sign Reading Time Taken Comments Blood Pressure 134/75 12/11/2022 8:50 AM CDT Pulse 81 12/11/2022 8:50 AM CDT Temperature 36.8 C (98.2 F) 12/11/2022 8:50 AM CDT Respiratory Rate 16 12/11/2022 8:50 AM CDT Oxygen Saturation 100% 12/11/2022 8:50 AM CDT Inhaled Oxygen Concentration - - Weight 63.5 kg (140 lb) 12/11/2022 8:50 AM CDT Height 165.1 cm (5' 5) 12/11/2022 8:50 AM CDT Body Mass Index 23.3 12/11/2022 8:50 AM CDT Plan of Treatment Health Maintenance Due Date Last Done Comments Fall Risk Assessment 1945 Osteoporosis Screening-Bone Density Scan 1945 DTaP/Tdap/Td Vaccine (1 - Tdap) 09/24/1954 Hepatitis B Screening 09/24/1961 Well Visit 65+ 09/24/2008 Depression Screening 10/20/2018 10/20/2017, 10/21/19 18 Covid-19 Vaccine (4 - 2023-2 5 season) 2023 02/06/2022, 08/13/2021, 01/24/2021 Influenza Vaccine (Season Ended) 2024 01/05/2022, 01/07/2021, 12/31/2019, Additional history exists Pneumococcal vaccine 65+ Completed 01/16/2020, 12/04 Zoster Vaccine Completed 11/19/2022, 08/28/2022 Goals Goal Patient Goal Type Associated Problems Recent Progress Patient-Stated? Author [facility] On track( 018 1:45 PM CDT) No Young Hawkins, RN Note: Walk 1-2 miles with minimal pain. Insurance MEDICARE [facility] MEDICARE [facility] Care Teams Adult Neurologist Relationship Specialty Start Date End Date Alvin Vallejo MD PCP - General 10/11/17
--- OUTSIDE RECORDS SUMMARY | 2024-09-07 10:04 | XMS_ITS | Encounter Summary ---
Author Organization [facility] Address [address] [place] [address] Care Team Providers Care Musical Performer Name Role Phone Alvin Fine MD Primary Care Provider [phone] Encounter Details Date Type Department Care Team (Late st Contact Info) Description 12/01/2018 Lab Requisition [facility] [address] [place] [address] Ric Rainey MD [address] [place] [address] Social History Tobacco Use Types Packs/Day Years Used Date Smoking Tobacco: Never Assessed Comments Unknown Sex and Gender Information Value Date Recorded Sex Assigned at Not on file 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 Gender Identity Not on file Sexual Orientation Not on file documented as of this encounter Plan of Treatment Not on file documented as of this encounter Procedures Procedure Name Priority Date/Time Associated Diagnosis Comments DERMATOPATHOLOGY Routine 11/30/2018 12:0 0 AM CDT documented in this encounter Results * DERMATOPATHOLOGY (11/30/2018 12:00 AM CDT) Case Report Dermatopathology Report Case: [id number] Authorizing Provider: Ric Rainey MD Collected: 11/30/2018 12:00 AM Ordering Location: [facility] Received: 12/01/2018 12:07 PM Pathologist: Connie Estrada MD Specimen: Skin, left hand dorsally 9 4:20 PM CDT DERMATOPATHOLOGY LABORATORY Final Diagnosis Specimen A. SKIN, left hand dorsally: HYPERPLASTIC (HYPERTROPHIC) ACTINIC KERATOSIS (L57.0) GRANULOMATOUS DERMATITIS CONSISTENT WITH A RUPTURED CYST OR HAIR FOLLICLE (L72.0) (see microscopic description) 4:20 PM T DERMATOPATHOLOGY LABORATORY at 1620 CDT Clinical History R/O SCC. 4:20 PM CDT DERMATOPATHOLOGY LABORATORY Gross Description Specimen A: Received is one formalin filled container labeled with the patient's name and designated left hand dorsally. The specimen consists of a shave biopsy measuring [id number]. Jar 0. 4:20 PM T DERMATOPATHOLOGY LABORATORY Microscopic Description Specimen A. SKIN, left hand dorsally: There is hyperkeratosis alternating with parakeratosis. There is epidermal hyperplasia with disorderly maturation of keratinocytes with nuclear pleomorphism confined to the lower half of the epidermis. In addition, neutrophils, histiocytes, and multinucleated giant cells are present within the dermis. Additional deeper sections were obtained and reviewed. 4:20 PM T DERMATOPATHOLOGY LABORATORY Disclaimer An external and internal positive and negative controls are appropriate for the histochemical, immunohistochemical and immunofluorescence stain(s) in this case (if any), except where stated explicitly. The performance characteristics of the stain(s) cited in this report were developed and its performance characteristic determined by the Dermatopathology Laboratory at [facility], directed by Dr. Alicia Estrada. These tests need not be, and therefore are not, approved by the [place] Food and Drug Administration. The tests are used for clinical purposes. Billing Codes Specimen Charges Stain Charges 00114 1 4:20 PM CDT DERMATOPATHOLOGY LABORATORY Embedded Images 4:20 PM CDT DERMATOPATHOLOGY LABORATORY Pathology/Cytolog y TISSUE SPECIMEN FROM SKIN / Unknown 11/30/2018 12/01/2018 12:07 PM CDT us Ric Rainey MD LAB - PATHOLOGY/CYTOLOGY ORD ERABLES Final Result DERMATOPATHOLOGY LABORATORY [facility] - Department of Dermatology [address] [place] [address], [address] [place] [address], [facility] [phone] documented in this encounter Visit Diagnoses Not on filedocumented in this encounter Care Teams Musical Performer Relationship Specialty Start Date End Date Alvin Fine MD [address] [place] [phone] PCP - General 01/30/19 documented as of this encounter
--- OUTSIDE RECORDS SUMMARY | 2024-09-07 10:04 | XMS_ITS | Clinical Summary ---
Author Organization [facility] [employer] Address [address] [place] [address] Care Team Providers Care Enterprise Architect Manager Name Role Phone Alvin Fine MD Primary Care Provider [phone] Source Comments [facility] [employer],non-owned Affiliates and Associated Physician Practices is amultiple site organization consisting of ambulatory clinics and hospital sitesin [place], [place], [place] and [place]. This disclosure is being madepursuant to the Care Everywhere program and may not contain all information available regarding this patient. 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 Gender Identity Not on file Sexual Orientation Not on file Plan of Treatment Health Maintenance Due Date Last Done Comments BONE DENSITY TESTING 1945 MEDICARE AWV 12 MONTHS 1945 DTAP/TDAP/TD VACCINES (1 - Tdap) 09/24/1962 PNEUMOCOCCAL VACCINE 50+ (1 of 1 - PCV) 09/24/1993 ZOSTER VACCINE (1 of 2) 09/24/1993 Respiratory Syncytial Virus (RSV) Vaccine Pt: or over 60 yrs (1 - 1-dose 75+ series) 09/24/2018 COVID-19 VACCINE ( - 2023-2 5 season) 2023 DEPRESSION SCREENING 04/04/2024 INFLUENZA VACCINE (Season Ended) 2024 HEPATITIS B VACCINE Aged Out No longe r eligible based on patient's age to complete this topic HIB VACCINE Aged Out No longer eligi ble based on patient's age to complete this topic HPV VACCINE Aged Out No longer eligi ble based on patient's age to complete this topic MENINGOCOCCAL (Group B) VACC INE SHARED DECISION-MAKING Aged Out No longer eligibl e based on patient's age to complete this topic MENINGOCOCCAL GROUPS A/C/Y/W VACCINE Aged Out No longer eligible b ased on patient's age to complete this topic Insurance [employer] MEDICARE SUPPLEMENT MEDICARE [employer] MEDICARE SUPPLEMENT MEDICARE SUPPLEMENT PAYOR GENERIC SELF PAY NO INSURANCE Member Subscriber Plan / Payer (Ef fective for All Dates) Name:Flynn Joyce Pauline Member ID:Not on file Relation to Subscriber:Not on file Name:FLYNN JOYCE Subscriber ID:Not on file (Home) Address: [address] [place] [id number] Payer ID:Not on file Group ID:Not on file Type:Self Pay Address: [place], [place] Care Teams Enterprise Architect Manager Relationship Specialty Start Date End Date Alvin Fine MD [address] [place] [phone] PCP - General 01/30/19
--- OUTSIDE RECORDS SUMMARY | 2024-09-07 10:04 | XMS_ITS | Referral Summary ---
Author Organization [facility] Address [address] [place] [address] Care Team Providers Care Implementation Manager Name Role Phone Alvin Vallejo MD Primary Care Provider [phone] Allergies No known active allergies Medications fluticasone (FLONASE) 50 mcg/actuation nasal spray Administer 2 sprays into each nostril daily Active estradiol (ESTRACE) 0.5 mg tablet Take 0.5 mg by mouth daily. 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 Author [facility] On track( 018 1:45 PM CDT) Young Monahan, MIHIR Note: Walk 1-2 miles with minimal pain. Insurance [employer] MEDICARE [employer] Care Teams Implementation Manager Relationship Specialty Start Date End Date Alvin Vallejo MD PCP - General 10/11/17
--- OUTSIDE RECORDS SUMMARY | 2024-09-07 10:04 | XMS_ITS | Data Portability ---
Author Organization [place] [facility] [place], [facility] Address [address] [place] [address] Assessment Encounter Date Assessment Date Assessment LastModified by Organization Details LastModified Time 04/26/2023 04/26/2023 - Patient evaluated for intermittent vaginal burning and suprapubic cramping. Vaginal erythema with no tenderness, no d/c on PE. - Results of dipstick note trace blood; sent for urine culture per Pt request. - Tx: Vaginal estradiol cream for atrophy/irritat ion of vagina. Uribel for bladder/urethra spasms - Patient educated on treatment and goals of therapy. - Discussed follow up and orders indicated below. Not available 04/26/2023 21:08:32 Plan of Treatment Reminders Order Date Submit Date Provider Last Modified By Organization Details Last Modified Time Details Appointments None recorded. Lab urinalysis, dipstick 2023 024 [email or web address] Main Office, [address] [place], [place] [address]y [address], [place], [address], 4 11:06:26 unlisted lab - complete urinary tract infection panel (UTI) + antibiotic resistance (reflex) 2023 024 [facility], [address] [place] [address] [place], [address], 08:50:34 Referral None recorded. Procedures None recorded. Surgeries None recorded. Imaging None recorded. Medication Orders estradiol 0.01% (0.1 mg/gram) vaginal cream 2023 024 [facility], [address] [place], [address], 11:06:31 Uribel 118 mg-10 mg-40.8 mg-36 mg capsule 2023 024 [facility] [address], [place], [address], 11:06:30 Patient TargetsNo targets recorded. Patient Instructions Encounter Date Encounter Id Patient Instructions Last Modified By Organization Details Last Modified Time 04/26/2023 [id number] - Pt to be contacted when UCx results become available. - Pt states understanding/agr eement with tx plan. - Implications discussed, instructions given, all questions answered. - RTO prn Time Spent on Encounter: >30 minutes. [email or web address] Not available 04/26/2023 21:07:37 Reason for Referral None Reported. Results Created Date Observation Date Name Description Value Unit Range Abnormal Flag Note LastModifiedBy Organization Detail LastModifiedTime 04/26/19 24 04/26/2023 urina lysis , dipst ick Leukocytes neg Not Available Main Of fice [address], [place], [address], 04/26/2023 10:21:39 04/26/19 24 04/26/2023 urina lysis , dipst ick Nitrite negati ve Not Available Main Office [address], [place], [address], 04/26/2023 10:21:39 04/26/19 24 04/26/2023 urina lysis , dipst ick Urobilinogen nl Not Available Main Office [address], [place], [address], 04/26/2023 10:21:39 04/26/19 24 04/26/2023 urina lysis , dipst ick Protein neg-tr Not Available Main Offic e [address], [place], [address], 04/26/2023 10:21:39 04/26/19 24 04/26/2023 urina lysis , dipst ick pH 7 Not Available Main Offic e [address], [place], [address], 04/26/2023 10:21:39 04/26/19 24 04/26/2023 urina lysis , dipst ick Blood trace Not Available Main Offic e [address], [place], [address], 04/26/2023 10:21:39 04/26/19 24 04/26/2023 urina lysis , dipst ick Specific Brillion 1.010 Not Available Main O ffice [address], [place], [address], 04/26/2023 10:21:39 04/26/19 24 04/26/2023 urina lysis , dipst ick Ketone negati ve Not Available Main Office [address], [place], [address], 04/26/2023 10:21:39 04/26/19 24 04/26/2023 urina lysis , dipst ick Bilirubin negati ve Not Available Main Office [address], [place], [address], 04/26/2023 10:21:39 04/26/19 24 04/26/2023 urina lysis , dipst ick Glucose negati ve Not Available Main Office [address], [place], [address], 04/26/2023 10:21:39 04/26/19 24 04/26/2023 urina lysis , dipst ick Appearance normal Not Available Main Of fice [address], [place], [address], 04/26/2023 10:21:39 04/26/19 24 04/26/2023 urina lysis , dipst ick Color yellow Not Available Main Offic e [address], [place], [address], 04/26/2023 10:21:39 Result Notes None recorded. Problems Name Problem SNOMED Code Status Onset Date Resolution Date Notes Provider Name and Address Organization Details Recorded Time Urinary tract infectious disease 39807739 Active 2023 Emam Delgado [facility], [facility] 4 11:00:36 Spasm of urinary bladder 685963076 Active 2023 Emma Sandy [facility], [facility] 4 11:01:10 Atrophy of vagina 130914079 Active 2023 [facility] 4 11:04:20 Vulvovaginitis 79817109 Active 2023 [facility] 16:52:01 Problem Notes None recorded. Procedures Surgical History Date Name Laterality Status Provider Name and Address Organization Details Recorded Time Back Surgery completed Cleo [facility] 04/26/2023 09:24:16 Hysterectomy completed Cleo [facility] 04/26/2023 09:24:25 Imaging Results None recorded. Procedure Notes None recorded. Medical Equipment None Reported. Allergies No known drug allergies Medications Name Sig Start Date Stop Date Status Note LastModified by Organization Details LastModified Time prednisone 10 mg tablet TAKE ONE TABLET BY MOUTH THREE TIMES DAILY FOR THREE DAYS, THEN ONE TABLET TWICE DAILY FOR TWO DAYS, THEN ONE TABLET ONCE DAILY FOR ONE DAY 04/26 completed Not Available Not Available Not Available azithromyci n 250 mg tablet TAKE 2 TABLETS BY MOUTH ON DAY 1, AND THEN TAKE 1 TABLET BY MOUTH ONCE A DAY ON DAY 2 THROUGH DAY 5 04/26 completed Not Available Not Available Not Available fluconazole 150 mg tablet TAKE 1 TABLET BY MOUTH EVERY THIRD DAY FOR 2 DOSES. 04/26 completed Not Available Not Available Not Available clotrimazol e 1 % vaginal cream INSERT 1 APPLICATO RFUL VAGINALLY NEEDED active Not Available Not Available No t Available meclizine 25 mg tablet TAKE 1 TABLET BY MOUTH NIGHTLY NEEDED 04/26 completed Not Available Not Available Not Available estradiol 0.01% (0.1 mg/gram) vaginal cream INSERT 0.5 G TWICE A WEEK BY VIGINAL ROUTE AT BEDTIME active Not Available Not Available No t Available methylpredn isolone 4 mg tablets in a dose pack TAKE BY MOUTH DIRECTED ON INSIDE OF PACKAGE 04/26 completed Not Available Not Available Not Available cefdinir 300 mg capsule TAKE 1 CAPSULE BY MOUTH TWICE DAILY FOR 7 DAYS 04/26 completed Not Available Not Available Not Available neomycin 3.5 mg/g-polymy nicki B 10,000 unit/g-dexa meth 0.1 % eye oint APPLY A SMALL AMOUNT TO BOTH EYES TWICE DAILY. 04/26 completed Not Available Not Available Not Available Uribel 118 mg-10 mg-40.8 mg-36 mg capsule Take 1 tablet 4 times a day by oral route for 7 days. 2023 active Not Available Not Available Not Avai lable Vitals Date Recorded Body height Body mass index (BMI) Body weight Heart rate Systolic blood pressure Diastolic blood pressure Provider Name and Address Organization Details Last Updated DateTime 165.1 cm 22.5 kg/m2 92613.9 7 g 78 /min 140 mm[Hg] 80 mm[Hg] Cleo Mcbride [facility] [place] 10:10:05 Social History Question Answer Notes LastModified by Organizat ion Details LastModified Time Tobacco Smoking Status Never Smoker Cleo Mcbride [facility] [place] 04/26/2023 09:43:20 How Many Children Do You Have? 0 [email or web address] Information not available 04/26/2023 What Is Your Relationship Status? Single [email or web address] Information not available 04/26/2023 Are You Sexually Active? No [email or web address] Information not available 04/26/2023 Sex: Unknown Functional Status None recorded. Mental Status None recorded. Family History Relationship Description Onset Age of this Age Resolved Age Notes LastModified by Organization Details LastModified Time Father Heart disease [email or web address] Not available 04/26 09:24:42 Sister Heart disease Not available 04/26 09:24:42 Brother Heart disease [email or web address] Not available 04/26 09:24:42 Medical History Condition Response Kidney Stones N Cancer-Colon N Blood Transfusion N Dermatologic Disorders N Cancer-Ovarian N Anxiety Disorder N Arthritis Y Neurologic/Epilepsy N Fibromyalgia N Kidney Disease N Headaches/Migraine N GI Problems (Crohn's, Colitis, Diverticu litis) N Heart Problems N Eating Disorder N Stroke/DVT/Blood Clot N Hepatitis/Liver Disease N Lung Disease N Hematologic disorders N Anesthesia Complications N Cancer- other N Polycystic ovary syndrome N Urology Problems N Endometriosis Y Thyroid Problems Y Anemia N Cancer-Breast N Psychiatric Illness N Diabetes N Pulmonary (TB, Asthma) N Cancer- Endometrial/Uterine N Diverticulitis N Hypertension N Osteoporosis N Gynecological History Statement/Question Response STIs/STDs N Sexually Active? N Obstetrics History GPAL:G 0 P 0 0 0 0 Type Value Living 0 Total 0 Past Encounters Encounter ID Performer Location Encounter Start Date Encounter Closed Date Diagnosis/Indication Diagnosis SNOMED-CT Code Diagnosis ICD10 Code Diagnosis Note [id number] Christophe Hoffmann MD MAIN OFFICE [address] [facility] [facility] [address] [place] [address] 04/26/2023 09:30:09 05/02/2023 09:54:25 Urinary tract infectious disease 09976326 N39.0 Spasm of u rinary bladder 677278639 N32.89 Atrophy of vagina 683745 009 N95.2 Health Concerns Section Related Observation LastModified by Organization Detai ls LastModified Time None Recorded Concern Status LastModified by Organization Details LastModified Time None Recorded Advance Directives Directive None Recorded Payers Insurance Date Sequence Insurance Name Policy Number Policy Rose Covered Member ID Rose Member ID Guarantor Name 04/11/2023 1 [place] [id number] [place] 04/11/2023 2 [place] (MEDICARE SUPPLEMENT) [place] Dewey [id number] [place] Notes Date Note Type Note Provider Name and Address Organization Details Recorded Time 04/26/2023 text/html Pt presents toda y self ref for evaluation of intermittent vaginal burning and pelvic cramps. DTF q 4-5 hours, NTF x2-3. Pt reports incident in December having NTF q 2hr, hematuria and waking up having ICWSA episode that morning. Pt reports neg urine culture in 12/2022. Pt denies post void fullness, a weak slow stream, difficulty starting a stream, pain associated with urination, or frequent UTIs. Pt has 4-5 BM week with occasional constipation. Denies FI. Christophe Hoffmann MD [address], [place], [address], [facility] [place] [facility] [place] 04/28/2023 09:42:24 OBGyn Episode No OBEpisode recorded.
--- OUTSIDE RECORDS SUMMARY | 2024-09-07 10:04 | XMS_ITS | Encounter Summary ---
Author Organization [facility] Address [address] [place] [address] Care Team Providers Care Tennis Centre Manager Name Role Phone Alvin Fine MD Primary Care Provider [phone]- [phone] Encounter Details Date Type Department Care Team (Late st Contact Info) Description 12/01/2022 Lab Requisition [facility] - DermPath Lab [address] [place] [address] Ric Rainey MD [address] [place] [address] Social History Tobacco Use Types Packs/Day Years Used Date Smoking Tobacco: Never Assessed Comments Unknown Sex and Gender Information Value Date Recorded Sex Assigned at Not on file Legal Sex 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 Gender Identity Not on file Sexual Orientation Not on file documented as of this encounter Plan of Treatment Not on file documented as of this encounter Procedures Procedure Name Priority Date/Time Associated Diagnosis Comments DERMATOPATHOLOGY Routine 11/30/2022 12:0 0 AM CDT documented in this encounter Results * DERMATOPATHOLOGY (11/30/2022 12:00 AM CDT) Case Report Dermatopathology Report Case: [id number] Authorizing Provider: Ric Rainey MD Collected: 11/30/2022 12:00 AM Ordering Location: [facility] DermPath Lab Received: 12/02/2022 07:12 AM Pathologist: Concepcion Wang MD Specimen: Skin, right dorsal hand 4:56 PM CDT DERMATOPATHOLOGY LABORATORY Final Diagnosis Specimen A. SKIN, right dorsal hand: BENIGN VERRUCOUS KERATOSIS, INFLAMED (L82.1) 3 4:56 PM CDT DERMATOPATHOLOGY LABORATORY at 1656 CDT Clinical History R/O KA, SCC 3 4:56 PM CDT DERMATOPATHOLOGY LABORATORY Gross Description Specimen A: Received is one formalin filled container labeled with the patient's name and designated right dorsal hand. The specimen consists of a shave biopsy measuring [id number] mm. Jar 0. 3 4:56 PM CDT DERMATOPATHOLOGY LABORATORY Microscopic Description Specimen A. SKIN, right dorsal hand: Sections show hyperkeratosis, papillomatosis, hypergranulosis, and acanthosis. Inflammatory cells are present within the dermis. These histological findings can be seen in a verruca vulgaris or a seborrheic keratosis. 3 4:56 PM CDT DERMATOPATHOLOGY LABORATORY Disclaimer An external and internal positive and negative controls are appropriate for the histochemical, immunohistochemical and immunofluorescence stain(s) in this case (if any), except where stated explicitly. The performance characteristics of the stain(s) cited in this report were developed and its performance characteristic determined by the Dermatopathology Laboratory at [facility], directed by Dr. Alicia Estrada. These tests need not be, and therefore are not, approved by the [place] Food and Drug Administration. The tests are used for clinical purposes. Billing Codes Specimen Charges Stain Charges 85783 1 3 4:56 PM CDT DERMATOPATHOLOGY LABORATORY Embedded Images 3 4:56 PM CDT DERMATOPATHOLOGY LABORATORY Pathology/Cytolog y TISSUE SPECIMEN FROM SKIN / Unknown 11/30/2022 12/02/2022 7:12 AM CDT us Ric Rainey MD LAB - PATHOLOGY/CYTOLOGY ORD ERABLES Final Result DERMATOPATHOLOGY LABORATORY [facility] - Department of Dermatology [address], [address] [phone] documented in this encounter Visit Diagnoses Not on filedocumented in this encounter Care Teams Tennis Centre Manager Relationship Specialty Start Date End Date Alvin Fine MD [address] [place] [address] PCP - General 01/30/19 documented as of this encounter
--- OUTSIDE RECORDS SUMMARY | 2024-09-07 10:04 | XMS_ITS | Encounter Summary ---
Author Organization [facility] Address [address] [facility] [address] [place] [address] Care Team Providers Care Associate Merchandiser Name Role Phone Alvin Fine MD Primary Care Provider [phone]- [phone] Encounter Details Date Type Department Care Team (Late st Contact Info) Description 02/11/2022 Lab Requisition [facility] DermPath Lab [address], [facility] [place] [address] Ric Rainey MD [address] [place] [address] Social History Tobacco Use Types Packs/Day Years Used Date Smoking Tobacco: Never Assessed Comments Unknown Sex and Gender Information Value Date Recorded Sex Assigned at Not on file Legal 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 Gender Identity Not on file Sexual Orientation Not on file documented as of this encounter Plan of Treatment Not on file documented as of this encounter Procedures Procedure Name Priority Date/Time Associated Diagnosis Comments DERMATOPATHOLOGY Routine 02/10/2022 12:0 0 AM FORESTRY LABORER documented in this encounter Results * DERMATOPATHOLOGY (02/10/2022 12:00 AM FORESTRY LABORER) Case Report Dermatopathology Report Case: [id number] Authorizing Provider: Ric Rainey MD Collected: 02/10/2022 12:00 AM Ordering Location: [facility] DermPath Lab Received: 02/11/2022 01:54 PM Pathologist: Connie Estrada MD Specimen: Skin, left upper cut lip 2 2:35 PM FORESTRY LABORER DERMATOPATHOLOGY LABORATORY Final Diagnosis Specimen A. SKIN, left upper cut lip: BASAL CELL CARCINOMA, ERODED (C44.319) 2 2:35 PM [facility] DERMATOPATHOLOGY LABORATORY at 1435 FORESTRY LABORER Clinical History R/O HAK,SCC 2 2:35 PM [facility] DERMATOPATHOLOGY LABORATORY Gross Description Specimen A: Received is one formalin filled container labeled with the patient's name and designated left upper cut lip. The specimen consists of a shave biopsy measuring [id number]. Jar 0. 2 2:35 PM [facility] DERMATOPATHOLOGY LABORATORY Microscopic Description Specimen A. SKIN, left upper cut lip: The epidermis is eroded. Within the dermis there are aggregates of basaloid cells with a high nuclear to cytoplasmic ratio and peripheral palisading. 2 2:35 PM [facility] DERMATOPATHOLOGY LABORATORY Disclaimer An external and internal positive and negative controls are appropriate for the histochemical, immunohistochemical and immunofluorescence stain(s) in this case (if any), except where stated explicitly. The performance characteristics of the stain(s) cited in this report were developed and its performance characteristic determined by the Dermatopathology Laboratory at [facility], directed by Dr. Alicia Estrada. These tests need not be, and therefore are not, approved by the [place] Food and Drug Administration. The tests are used for clinical purposes. Billing Codes Specimen Charges Stain Charges 39109 1 2 2:35 PM [facility] DERMATOPATHOLOGY LABORATORY Embedded Images 2 2:35 PM [facility] DERMATOPATHOLOGY LABORATORY Pathology/Cytolog y TISSUE SPECIMEN FROM SKIN / Unknown 02/10/2022 02/11/2022 1:54 PM FORESTRY LABORER Ric Rainey MD LAB - PATHOLOGY/CYTOLOGY ORD ERABLES Final Result DERMATOPATHOLOGY LABORATORY [facility] - Department of Dermatology [facility] Medicine [address] [place] [address], [address] [phone] documented in this encounter Visit Diagnoses Not on filedocumented in this encounter Care Teams Associate Merchandiser Relationship Specialty Start Date End Date Alvin Fine MD [address] [place] [address] PCP - General 01/30/19 documented as of this encounter
--- OUTSIDE RECORDS SUMMARY | 2024-09-07 10:04 | XMS_ITS | Data Portability ---
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 Lab None recorded. Referral None recorded. Procedures None recorded. Surgeries None recorded. Imaging None recorded. Medication Orders Voltaren 1 % topical gel 2018 019 [email or web address] Not available 9 08:26:11 Patient TargetsNo targets recorded. Patient Instructions Encounter Date Encounter Id Patient Instructions Last Modified By Organization Details Last Modified Time 05/11/2018 [id number] Patient to followup in 2 weeks for further evaluation. dtome Not available 05/11/2018 12:16:21 05/25/2018 [id number] Pt to continue resting, icing, and elevating foot daily. Discussed with pt the benefits of MLS laser treatments. Recommended pt return for a follow up to undergo therapy treatment via the MLS laser. I explained to the patient the etiology and treatment options for onychomycosis including treatment with laser. Pt to continue to utilize topical treatments. Pt still does not wish to treat condition with oral medications. Patient should return to the clinic as needed if he/she suspects infection or has other concerns. dtome Not available 05/25/2018 13:30:52 06/13/2018 [id number] Pt to continue resting, icing, and elevating foot daily. Recommended pt return for a follow up to undergo therapy treatment via the MLS laser. dtome Not available 06/14/2018 11:03:23 06/15/2018 [id number] Recommended pt return for a follow up to undergo therapy treatment via the MLS laser. dtome Not available 06/15/2018 08:21:07 06/19/2018 [id number] Pt to continue resting, icing, and elevating foot daily. Recommended pt return for a follow up to undergo therapy treatment via the MLS laser. dtome Not available 06/19/2018 09:15:49 Reason for Referral None Reported. Results Created Date Observation Date Name Description Value Unit Range Abnormal Flag Note LastModifiedBy Organization Detail LastModifiedTime Result Notes None recorded. Problems No Known Problems Procedures Surgical History Date Name Laterality Status Provider Name and Address Organization Details Recorded Time 019 MLS Laser tx completed Maria Eugenia LOPEZ - [facility] 06/19/2018 09:15:37 019 MLS Laser tx completed Maria Eugenia LOPEZ - [facility] 06/15/2018 08:14:53 019 MLS Laser tx completed Maria Eugenia LOPEZ - [facility] 06/14/2018 11:02:34 019 Nail Debridement completed Maria Eugenia LOPEZ - [facility] 05/25/2018 13:20:41 019 MLS Laser tx completed Maria Eugenia LOPEZ - [facility] 05/25/2018 13:20:38 019 Corticosteroid Neuroma Injection DRP completed Maria Eugenia LOPEZ - [facility] 05/11/2018 12:16:00 01/24/2 019 Corticosteroid Neuroma Injection DRP completed Phillip Hansen, [place] [address] ,[place] [address], [place], [address], [place] - [facility] 06/26/2018 08:45:52 Back Surgery completed Julienne Brantley [place] - [facility] 04/27/2018 16:52:27 Imaging Results None recorded. Procedure Notes None recorded. Medical Equipment None Reported. Allergies No known drug allergies Medications Name Sig Start Date Stop Date Status Note LastModified by Organization Details LastModified Time erythromycin 5 mg/gram (0.5 %) eye ointment active Not Available Not Available Not Available estradiol active Not Available Not Bijal ilable Not Available fluticasone propionate active Not Available Not Available N ot Available Voltaren 1 % topical gel APPLY 2 GRAM TO THE AFFECTED AREA(S) BY TOPICAL ROUTE 4 TIMES PER DAY 2018 active Not Available Not Available Not Avai lable Vitals Date Recorded Body height Body mass index (BMI) Body weight Provider Name and Address Organization Details Last Updated DateTime 05/11/2018 165.1 cm 23.3 kg/m2 20005.93 g Julienne Brantley [place] - [facility] 05/11/2018 11:49:18 Date Recorded Body height Body mass index (BMI) Body weight Provider Name and Address Organization Details Last Updated DateTime 05/25/2018 165.1 cm 23.3 kg/m2 82453.93 g Maria Eugenia Henry [place] - [facility] 05/25/2018 13:18:53 Date Recorded Body height Body mass index (BMI) Body weight Provider Name and Address Organization Details Last Updated DateTime 06/13/2018 165.1 cm 23.3 kg/m2 60282.93 g Julienne Brantley [place] - [facility] 06/13/2018 15:32:15 Social History Question Answer Notes LastModified by Organizat ion Details LastModified Time Tobacco Smoking Status Never Smoker Julienne sun, [place] - [facility] 04/27/2018 16:51:38 Diabetes No Information no t available 04/27/2018 What Was The Date Of Your Most Recent Tobacco Screening? 06/13/2018 Information n ot available 10/26/2018 Sex: Unknown Functional Status Question Answer Note LastModified by Organization D etails LastModified Time What is your level of alcohol consumption? None Information not available 04/27/2018 Mental Status None recorded. Family History Relationship Description Onset Age of this Age Resolved Age Notes LastModified by Organization Details LastModified Time Father No current problems or disability [email or web address] Not available 04/27 16:51:32 Mother No current problems or disability [email or web address] Not available 04/27 16:51:32 Medical History Condition Response Gout N Tremors N Headaches/Migraines N Cramps N Varicose Veins N Dizziness N Heart Condition N Arthritis N Hearing Loss N Blood Pressure N Cancer N Stroke N High Cholesterol N Weight Loss N Kidney Problems N Angina N Anemia N Weight Gain N Ulcers N Circulation N Swelling-Ankle/Foot N Diabetes N AIDS/HIV N Back Problems Y Asthma N Epilepsy/Seizures N Numbness/Tingling Y Thyroid Disorder N Fainting N Neuropathy Y Gynecological HistoryNo gynecological history recorded. 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 Metatarsalgia 72145160 M 77.40 Foot pain 58316964 M79.6 72 [id number] Iker Hansen DPM [place] [address],[facility] [address] [place] [address] 05/11/2018 11:33:52 05/11/2018 12:16:49 Plantar nerve lesion 995834541 G57.62 [id number] [facility] [address],[facility] [address] [place] [address] 05/25/2018 12:54:12 05/25/2018 13:31:40 Onychomycosis 341042351 B35.1 Aj's n euroma of left foot 9939811337 54380 G57.62 [id number] Iker Hansen, [facility] [address] [facility] Luis E NUNEZ,[address] [place] [address] 06/13/2018 15:08:15 06/14/2018 11:03:47 Aj's neuroma of left foot 2940930746 37771 G57.62 [id number] Iker Hansen, [facility] [address] [facility] Luis E NUNEZ,[address] [address] 06/15/2018 08:05:52 06/15/2018 08:30:02 Aj's neuroma of left foot 6331202523 70293 G57.62 [id number] Iker Hansen, [facility] [address] [facility] Luis E NUNEZ,[address] [address] 06/19/2018 08:33:16 06/19/2018 09:16:11 Aj's neuroma of left foot 2386255011 06395 G57.62 Health Concerns Section Related Observation LastModified by Organization Detai ls LastModified Time None Recorded Concern Status LastModified by Organization Details LastModified Time None Recorded Advance Directives Directive None Recorded Payers Encounter Date Sequence Insurance Name Policy Number Policy Rose Covered Member ID Rose Member ID Guarantor Name 05/11/2018 1 [place] [id number] 1 Chula Dewey 05/11/2018 2 [employer] (MEDICARE SUPPLEMENT) [place] Dewey [id number] [place] 05/25/2018 1 [place] [id number] 1 [place] Dewey 05/25/2018 2 [employer] (MEDICARE SUPPLEMENT) [place] Dewey [id number] [place]wey 06/13/2018 1 [place] [id number] 1 [place] Dewey 06/13/2018 2 [employer] (MEDICARE SUPPLEMENT) [place] Dewey [id number] 0000A Ch[place] Dewey 06/15/2018 1 [place] De[place] [id number] 1 Chula Maco 06/15/2018 2 [employer] (MEDICARE SUPPLEMENT) Ch[place] Dewey [id number] 0000A [place] Dewey 06/19/2018 1 [place] [id number] 1 Chula Maco 06/19/2018 2 [employer] (MEDICARE SUPPLEMENT) Chula Dewey [id number] [id number] Ch[place] Dewey Notes Date Note Type Note Provider Name and Address Organization Details Recorded Time 9 text/html Podiatry FootReported bypatient.Location:[place] [facility] Quality:aching; burning; not changing Severity:moderate Duration:continuous since onset Timing:cannot identify Context:cannot identify Alleviating Factors:ice; rest; elevation Aggravating Factors:walking Associated Symptoms:no redness; no warmth; no drainage;tingling;swe lling;aching Previous Surgery:none Prior [place] Previous Injections:did not help Previous Treatments:helped temporarily (Patient underwent an injection about 1 year ago for Neuroma deformity.) Phillip Hansen, [place] [address], [address], [facility] 06/26/2018 08:47:50 9 text/html Mycotic nail careReported bypatient.Location:to enails right 2; Nail is yellow discolored with thickening and subungal debris. Quality:painful in shoes Severity:moderate Timing:gradual Alleviating Factors:taking off shoes Associated Symptoms:no warmth; no ecchymosis; no drainage; no swelling; no fever; no chills Previous Treatment:self trimmingPodiatry FootReported bypatient.Location:le ft Quality:aching; burning; improving (70% following second injection.) Severity:mild Duration:continuous since onset Timing:cannot identify Context:cannot identify Alleviating Factors:ice; rest; elevation Aggravating Factors:walking Associated Symptoms:no redness; no warmth; no drainage;tingling;swe lling;aching Previous Surgery:none Prior Imaging[place] Previous Injections:helped significantly Phillip Hansen DPM [id number], [place], [address], [facility] 06/26/2018 08:49:15 9 text/html Podiatry FootReported bypatient.Location:[facility] Quality:aching; burning; improving Severity:pain level 6/10 Duration:continuous since onset Timing:cannot identify Context:cannot identify Alleviating Factors:ice; rest; elevation Aggravating Factors:walking Associated Symptoms:no redness; no warmth; no drainage;tingling;swe lling;aching Previous Surgery:none Prior Imaging[place] Previous Injections:helped significantly Phillip Hansen DPM [address] [address], [place], [address], [facility] 06/26/2018 08:50:03 OBGyn Episode No OBEpisode recorded.
--- OUTSIDE RECORDS SUMMARY | 2024-09-07 10:05 | XMS_ITS | Data Portability ---
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 She has previously had significant improvement of her symptoms with a corticosteroid injection that provided her with about 6 months of relief. Over the last month she has had recurrence of her pain and would like to repeat a corticosteroid injection. We discussed that if these injections no longer provide her with symptom relief then we may consider surgical treatment with a CMC arthroplasty. Using standard technique and sterile protocol 1 cc of ropivacaine and 1 cc of Kenalog were injected into the right thumb CMC joint. Patient may follow-up as needed. [email or web address] Not available 07/27/2022 10:02:38 10/26/2022 10/26/2022 Patient presents neck pain. Pain is localized primarily of the neck not so much radiating down arm worse with activity somewhat relieved by rest. She has pain almost every day she has had this for years and seems to be getting worse at this point. She has good motion of her neck more pain with extension and bending side to side neurologically she appears to be intact her x-rays show degenerative changes but otherwise unremarkable. My impression patient has some stenosis and degenerative changes in her neck I recommended course of physical therapy we will also try prednisone taper for prescription drug management for pain and inflammation. I will see her back in a month for follow-up and reassess to see how she is doing at that point. Discussed this with her risks benefits limitations and alternatives. Patient has secondary complaint is CMC arthrosis right thumb she has had injection in the past like 1 today she has got grinding crepitus and pain with any manipulation I injected with 10 mg Kenalog 2 cc 1% lidocaine. [email or web address] Not available 10/26/2022 15:55:59 02/09/2023 02/09/2023 77-year-old patient presents today for right thumb injection. She states that she regularly gets injections into the thumb CMC joint by Dr. Khalil. Her last 1 was in October of this year. She reports pain with movement in the CMC joint for many years now. risk and benefits of cortisone injection were discussed in detail before proceeding. She elected to proceed with injection into the right thumb CMC joint today. We can see her back in 3-4 months or as needed for pain for her next injection. We discussed that CMC arthroplasty would be the next step after injection if they no longer work for her. [email or web address] Not available 02/09/2023 16:56:34 Plan of Treatment Reminders Order Date Submit Date Provider Last Modified By Organization Details Last Modified Time Details Appointments None recorded. Lab None recorded. Referral physical therapist referral - Please contact patient to schedule 2022 023 [email or web address], [address], [place], [address], 3 08:12:45 Procedures injection/a spiration joint/bursa (PROC) 2022 023 [email or web address] 3 In-Office Order, Internal Use Only DO Not Attach Compendium DO Not Attach Compendium, Do Not Delete/merge, [id number] 3 14:41:11 injection/a spiration joint/bursa (PROC) 2022 023 [email or web address] Not available 3 15:25:09 injection/a spiration joint/bursa (PROC) - in office procedure, administere d by provider 2022 023 [email or web address] Not available 3 09:27:11 Surgeries None recorded. Imaging XR, cervical spine, 1 view 2022 023 [email or web address] [facility], [address], [place], [address], 3 16:13:28 Medication Orders bupivacaine HCl 0.5 % (5 mg/mL) injection solution [address] [facility] [place], [address], 3 23:07:44 Kenalog 10 mg/mL suspension for injection [address] [facility] [place], [address], 3 23:07:44 prednisone 10 mg tablets in a dose pack [address] [facility] [place], [address], 3 15:33:50 Kenalog 10 mg/mL suspension for injection [address] [facility] [place], [address], 3 15:33:50 ropivacaine (PF) 5 mg/mL (0.5 %) injection solution [address] [facility] [place], [address], 3 15:33:50 Kenalog 10 mg/mL suspension for injection [address] [facility] [place], [address], 3 10:18:02 ropivacaine (PF) 5 mg/mL (0.5 %) injection solution [address] [facility] [place], [address], 3 10:18:02 Patient TargetsNo targets recorded. Patient InstructionsNo instructions recorded. Reason for Referral Physical Therapist Referral for Neck pain Please contact patient to schedule Referring Physician: Murtaza Khalil, Orthopedic Surgery, Encounter Date: 10/26/2022 Results Created Date Observation Date Name Description Value Unit Range Abnormal Flag Note LastModifiedBy Organization Detail LastModifiedTime 07/29/19 23 07/27/2022 US, thyro id No observ ation record ed. [email or web address] [address], [place], [address], 07/29/2022 09:32:03 07/31/19 23 US, thyro id No observ ation record ed. [address] [facility] [address], [place], [address], 08/02/2022 09:40:19 10/27/19 23 XR, cervi petar spine , 1 view No observ ation record ed. [email or web address] [facility] [address], [place], [address], 10/26/2022 15:54:11 Result Notes None recorded. Problems Name Problem SNOMED Code Status Onset Date Resolution Date Notes Provider Name and Address Organization Details Recorded Time Disorder of shoulder 424805368 Active Not Available [facility] 3 13:30:27 Disorder of trunk 114272108 Active Not Available [facility] 3 13:30:27 Dysphonia 48791418 Active 2021 Not Available [facility] 3 13:30:27 Radial styloid tenosynovi tis 81577626 Active Not Available [facility] 3 13:30:27 Thyroid nodule 706763112 Active 2018 Not Available [facility] 3 13:30:28 Multinodul ar goiter 532867583 Active 2021 Not Available [facility] 3 13:30:28 Current tear of medial cartilage AND/OR meniscus of knee Active Not Available [facility] 3 13:30:28 Knee pain Active Not Available [facility] 3 13:30:28 Osteoarthr osis of the carpometac arpal joint of the thumb 26927619 Active 2021 Not Available [facility] 3 13:30:28 Pain of hip region 09376220 Active Not Available [facility] 3 13:30:28 Pain in right hand 9306640708639 09 Active 2022 PATRICIA Godfrey, [facility] 3 09:02:50 Arthritis of first carpometac arpal joint of right hand 4575177939452 100 Active 2022 PATRICIA Godfrey, [facility] 3 09:03:03 Neck pain 44763489 Active 2022 PATRICIA Antonio, [facility] 3 14:56:42 Problem Notes None recorded. Procedures Surgical History Date Name Laterality Status Provider Name and Address Organization Details Recorded Time 02/10/20 Ortho - Cortisone Injection completed Mary Jane Gasca NP [address], [address], [facility] 02/09/2023 16:56:52 10/27/19 Ortho - Cortisone Injection completed Murtaza Khalil MD [address] [address], [place], [address], [facility] 10/26/2022 15:55:23 thumb surgery completed Not Available [facility] 06/02/2022 13:29:35 Hysterectomy completed PATRICIA Antonio [facility] 10/26/2022 14:56:17 Imaging Results None recorded. Procedure Notes None recorded. Medical Equipment None Reported. Allergies No known drug allergies Medications Name Sig Start Date Stop Date Status Note LastModified by Organization Details LastModified Time prednisone 10 mg tablet TAKE ONE TABLET BY MOUTH THREE TIMES DAILY FOR THREE DAYS, THEN ONE TABLET TWICE DAILY FOR TWO DAYS, THEN ONE TABLET ONCE DAILY FOR ONE DAY active Not Available Not Available No t Available doxycycline hyclate 100 mg capsule TAKE 1 CAPSULE BY MOUTH TWICE DAILY DIRECTED (DO NOT TAKE AT BEDTIME OR ON AN EMPTY STOMACH) 07/29 completed Not Available Not Available Not Available paroxetine 10 mg tablet TAKE 1 TABLET BY MOUTH ONCE DAILY 01/04 completed Not Available Not Available Not Available azithromyci n 250 mg tablet TAKE 2 TABLETS BY MOUTH ON DAY 1, AND THEN TAKE 1 TABLET BY MOUTH ONCE A DAY ON DAY 2 THROUGH DAY 5 active Not Available Not Available No t Available pravastatin 40 mg tablet TAKE 1 TABLET BY MOUTH EVERY OTHER DAY AT BEDTIME 10/26 completed Not Available Not Available Not Available fluconazole 150 mg tablet TAKE 1 TABLET BY MOUTH EVERY THIRD DAY FOR 2 DOSES. active Not Available Not Available No t Available hydrocodone 5 mg-acetamin ophen 325 mg tablet 01/12 completed Not Available Not Available Not Available bupivacaine HCl 0.5 % (5 mg/mL) injection solution IN OFFICE 2022 active Not Available Not Available Not Avai lable ciprofloxac in 500 mg tablet 01/12 completed Not Available Not Available Not Available prednisone 10 mg tablets in a dose pack Take 1 tab by mouth, 3 times a day for 3 daysTake 1 tab by mouth 2 times a day for 2 daysTake 1 tab by mouth once a day for 1 day 2022 active Not Available Not Available Not Avai lable potassium chloride ER 20 mEq tablet,exte nded release(par t/cryst) 01/12 completed Not Available Not Available Not Available Kenalog 10 mg/mL suspension for injection IN OFFICE 2022 active [facility]: 0003- 0494- 20 Not Available Not Available Not Available meclizine 25 mg tablet TAKE 1 TABLET BY MOUTH NIGHTLY NEEDED active Not Available Not Available No t Available cephalexin 500 mg capsule TAKE 1 CAPSULE BY MOUTH THREE TIMES DAILY FOR 7 DAYS (CHANGE DRESSING) 01/04 completed Not Available Not Available Not Available erythromyci n 5 mg/gram (0.5 %) eye ointment APPLY THREE TIMES A DAY DIRECTED 01/12 completed Not Available Not Available Not Available clotrimazol e-betametha sone 1 %-0.05 % topical cream APPLY A DAB OF CREAM TOPICALLY TWICE DAILY 08/14 completed Not Available Not Available Not Available diclofenac sodium 75 mg tablet,litzy yed release TAKE 1 TABLET BY MOUTH TWICE DAILY 12/26 completed Not Available Not Available Not Available furosemide 20 mg tablet 01/12 completed Not Available Not Available Not Available estradiol 0.5 mg tablet TAKE 1 TABLET BY MOUTH ONCE DAILY 12/05 completed Not Available Not Available Not Available methylpredn isolone 4 mg tablets in a dose pack TAKE BY MOUTH DIRECTED ON INSIDE OF PACKAGE active Not Available Not Available No t Available cefdinir 300 mg capsule TAKE 1 CAPSULE BY MOUTH TWICE DAILY FOR 7 DAYS active Not Available Not Available No t Available fluticasone propionate 50 mcg/actuati on nasal spray,suspe nsion active Not Available Not Available Not Available neomycin 3.5 mg/g-polymy nicki B 10,000 unit/g-dexa meth 0.1 % eye oint APPLY A SMALL AMOUNT TO BOTH EYES TWICE DAILY. active Not Available Not Available No t Available rosuvastati n 5 mg tablet TAKE ONE TABLET BY MOUTH THREE TIMES A WEEK ON MONDAYS, TUESDAY S, AND Fridays completed Not Available Not Available Not Available fluticasone propionate 2021 active Not Available Not Available Not Avai lable lidocaine (PF) 10 mg/mL (1 %) injection solution In office injection administe red by the provider 12/23 completed [facility]: 0409- [phone]- [phone] Not Available Not Available Not Available lidocaine (PF) 5 mg/mL (0.5 %) injection solution Take 10 mg by injection route. 01/04 completed Not Available Not Available Not Available ropivacaine (PF) 5 mg/mL (0.5 %) injection solution Take 10 mg by injection route. 2022 active Not Available Not Available Not Avai lable Fluzone High-Dose 2013- (PF) 180 mcg/0.5 mL intramuscul ar syringe 01/12 completed Not Available Not Available Not Available Praluent Pen 75 mg/mL subcutaneou s pen injector active Not Available Not Available Not Available Vitals Date Recorded Body height Body mass index (BMI) Body weight Provider Name and Address Organization Details Last Updated DateTime 07/27/2022 165.1 cm 23.3 kg/m2 78462.93 g PATRICIA Godfrey - [facility] 07/27/2022 09:02:27 Date Recorded Body height Body mass index (BMI) Body weight Provider Name and Address Organization Details Last Updated DateTime 10/26/2022 165.1 cm 23.3 kg/m2 52433.93 g Dorothy Danielle [facility] 10/26/2022 14:55:07 Date Recorded Body mass index (BMI) Body mass index (BMI) Body height Body temperature Body weight Body weight Provider Name and Address Organization Details Last Updated DateTime 24.5 kg/m2 23.3 kg/m2 165.1 cm 97.8 [degF] 79440.0 8 g 26436.9 3 g Not Available [facility] 13:29:48 Date Recorded Body height Body mass index (BMI) Body weight Provider Name and Address Organization Details Last Updated DateTime 02/09/2023 165.1 cm 23.3 kg/m2 49902.93 g Leatha Tarango [facility] 02/09/2023 14:20:41 Social History Question Answer Notes LastModified by Organizat ion Details LastModified Time Tobacco Smoking Status Never [facility] 10/26/2022 14:47:06 In The 14 Days Before Symptom Onset, Have You Had Close Contact With A Laboratory-confirm ed COVID-19 While That Case Was Ill? No [email or web address] Information n ot available 10/26/2022 In The 14 Days Before Symptom Onset, Have You Had Close Contact With A Person Who Is Under Investigation For COVID-19 While That Person Was Ill? No [email or web address] Information not available 10/26/2022 Have You Recently Traveled Abroad? No [email or web address] Information not available 10/26/2022 Sex: Unknown Functional Status Question Answer Note LastModified by Organizat ion Details LastModified Time What is your level of alcohol consumption? None [id number] Information not available 06/02/2022 Mental Status None recorded. Family History Relationship Description Onset Age of this Age Resolved Age Notes LastModified by Organization Details LastModified Time Mother Thyroidectom y [email or web address] Not available 10/26 14:47:06 Mother Heart disease [id number] Not available 06/02/2022 13:29:36 Sister Thyroidectom y [email or web address] Not available 10/26 14:47:06 Father Hypertensive disorder [email or web address] [id number] Not available 06/02/2022 13:29:36 Medical History Condition Response MRSA N SLEEP APNEA N ALLERGIES/HAYFEVER N LUNG DISEASE/DISORDER N HISTORY OF DRUG ABUSE N INSOMNIA N COPD N RADIATION / CHEMOTHERAPY N HIGH CHOLESTEROL / HYPERLIPIDEMIA N HYPERTHYROIDISM N BLOOD DISEASES N EAR OR HEARING PROBLEMS N HYPOTHYROIDISM N SHINGLES N DEPRESSION (INCLUDING POST ) N HAVE YOU BEEN HOSPITALIZED OR SEEN IN E ER IN THE PAST YEAR ? N STROKE/TIA N ULCERS N OBESITY N ANEURYSM N HISTORY WITH COMPLICATIONS WITH ANESTHES IA ? N USE OF BLOOD THINNERS N NO SIGNIFICANT PAST MEDICAL HISTORY N DIABETES, TYPE N PARATHYROID DISEASE N ENT N SEASONAL ALLERGIES N HEARTBURN / REFLUX N HEPATITIS / LIVER DISEASE N SLEEP DISORDER N SEIZURES/EPILEPSY N HEADACHES/MIGRAINES N CHF N PACEMAKER N DIZZINESS N HEART DISEASE/HEART PROBLEMS N AIDS/HIV N FRACTURES N HYPERTENSION N CANCER: SPECIFY N TOURETTE'S N BLOOD TRANSFUSION Y ANESTHESIA COMPLICATIONS N ANEMIA/BLOOD DISORDER N CHRONIC EAR INFECTIONS N TUBERCULOSIS N Gynecological HistoryNo gynecological history recorded. Obstetrics History GPAL:G 0 P 0 0 0 0 Past Encounters Encounter ID Performer Location Encounter Start Date Encounter Closed Date Diagnosis/Indication Diagnosis SNOMED-CT Code Diagnosis ICD10 Code Diagnosis Note [id number] MD LUIS M [facility] [address] [place] [address] 12/25/2020 00:00:00 12/25/2020 12:39:29 [id number] Gianfranco Rodgers MD [facility] [address] [place] [address] 07/30/2021 00:00:00 07/30/2021 12:12:33 [id number] MD LUIS M [facility] [address] [place] [address] 08/14/2021 00:00:00 08/14/2021 14:57:00 [id number] MD LUIS M [facility] [address] [place] [address] 01/05/2022 00:00:00 01/05/2022 12:40:03 [id number] Hiren Calderon MD [facility] [place] [place] [facility] [address] [place] [address] 01/05/2022 00:00:00 01/05/2022 17:24:34 [id number] Hiren Calderon MD [facility] [place] [place] [facility] [address] [place] [address] 07/27/2022 08:58:28 07/27/2022 09:29:31 Pain in right hand 1444067210 09327 M79.641 Arthritis of first carpometacarpal joint of right hand 1415981369 676122 M13.841 [id number] Murtaza Khalil MD [facility] [place] [place] [facility] [address] [place] [address] 10/26/2022 14:45:22 10/26/2022 16:13:28 Neck pain 92434275 M54.2 Pain in right hand 93145 59454 55135 M79.641 Osteoarthr osis of the carpometacarpal joint of the thumb 36544319 M18.9 M18.11 [id number] Igor Somers MD [facility] [place] [place] [facility] [address] [place] [address] 02/09/2023 14:18:34 02/09/2023 14:41:25 Osteoarthrosis of the carpometacarpal joint of the thumb 69758458 M18.11 Health Concerns Section Related Observation LastModified by Organization Detai ls LastModified Time None Recorded Concern Status LastModified by Organization Details LastModified Time None Recorded Advance Directives Directive None Recorded Payers Encounter Date Sequence Insurance Name Policy Number Policy Rose Covered Member ID Rose Member ID Guarantor Name 07/27/2022 1 [place] [id number] Chula Dewey 07/27/2022 2 [employer] [place]wey [id number] Chula Dewey 10/26/2022 1 [place] [id number] Chula Dewey 10/26/2022 2 TRANSCHICO Dewey [id number] Chula Dewey 02/09/2023 1 [place] [id number] Chula [place]wey 02/09/2023 2 PANCHO Dewey [id number] Chula [place]wey Notes Date Note Type Note Provider Name and Address Organization Details Recorded Time 07/27/2022 text/html 76-year-old tee chandra returns to the clinic concerning right CMC osteoarthritis of the thumb. She was last seen in January of 2022 and received a corticosteroid injection, which provided her with significant relief. She has noticed over the last month that her symptoms have returned. she has been experienced decreased strength with pinching. She has been since compensating with her left hand. SUZETTE Garcia [address], [place], [address], [employer] 07/27/2022 10:06:08 10/26/2022 text/html C-spineReported bypatient.Location:p osterior; deep Quality:throbbing; frequent Severity:moderate Timing:chronic; recurrent Context:lifting; twisting; overuse Alleviating Factors:lying down; ice; rest; exercise; stretching; NSAIDs Aggravating Factors:lifting; carrying; exercise Associated Symptoms:no numbness; no tingling; no redness; no warmth; no ecchymosis; no catching/locking; no popping/clicking; no buckling; no grinding; no instability; no radiation down arm; no drainage; no fever; no chills; no weight loss; no change in bowel/bladder habits;weakness;swel ling Patient has a secondary complaint is CMC arthrosis she has had an injection in the past and would like 1 today on the right hand. Murtaza Khalil MD [address], [place], [address], [employer] 10/26/2022 15:56:26 OBGyn Episode No OBEpisode recorded.
== END 2024-09-07 09:58 | disposition home or self-care (01) ==
PROVIDERS: PCP Internal Medicine; Visit Provider Internal Medicine
DX: E04.2 Nontoxic multinodular goiter (principal)
CPT/HCPCS: 76536

== ENCOUNTER 2024-09-26 12:34 | Outpatient (CLI) | payer MEDICARE, SELFPAY ==
--- NOTE | ~2024-09-26 | US_ITS ---
EXAMINATION: US FNA w image guidance DATE: 09/26/2024 13:43 INDICATION: Thyroid nodule TECHNIQUE: A time-out was performed to verify the patient's name, date of , and procedure to be performed . The procedure and its benefits and risks were discussed with the patient. Risks specifically discus sed included bleeding and infection. The patient understood the risks and agreed to proceed. The neck was prepped and draped in the usual sterile manner. 4 mL 1% lidocaine was used for local anesthesia . 7 passes were made with a 25G needle into the lesion. Appropriate needle location was documented with continuous sonographic guidance. A sterile bandage was applied. There were no immediate compli cations. FINDINGS: Grayscale ultrasound images demonstrate biopsy needles advanced into a 1.4 cm TI RADS 5 nodule at the junction of the right thyroid lobe and isthmus. IMPRESSION: 1. Successful ultrasound-guided fine needle aspiration of the 1.4 cm TI RADS 5 right thyroid nodule. Reviewed, dictated and finalized at location A.
--- NOTE | 2024-09-26 13:09 | CY_PTH ---
PATIENT: Chula Dewey LOC: [facility] U#:[id number] AGE/SX: 79/F ROOM: RE09/26/[address]: Crystal Rashid, : 1945 BED: DIS: 09/26/2024 SPEC #: [id number] RECD: 09/26/24 13:43 STATUS: PIEDAD REQ #: [id number] KENZIE: 09/26/24 13:[address]: RachidCrystal DEPT: [facility] Cytology RECD BY: Michael Wagoner Tissues: A - FNA Thyroid Procedures: Hematoxylin and Eosin Stain Cell Block Fine Needle Aspiration Evaluation Fine Needle Aspiration Pathologist
== END 2024-09-26 12:35 | disposition home or self-care (01) ==
PROVIDERS: PCP Internal Medicine; Visit Provider Internal Medicine
DX: E04.1 Nontoxic single thyroid nodule (principal)
CPT/HCPCS: 10005; 88172; 88173; 88305

== ENCOUNTER 2025-01-16 08:35 | Outpatient (CLI) | payer MEDICARE, SELFPAY ==
--- OUTSIDE RECORDS SUMMARY | 1999-06-08 08:00 | XMS_ITS | Continuity of Care Document ---
Author Organization [facility] Address [address] [place] [address] Phone Care Team Providers Care Roll Repairer Name Role Phone Parth Zafar Unavailable Unavailable Advance Directives Directive Yes / No Effective Date File Name No Information Encounters Encounter Description Practice Location Reason(s) For Visit Diagnoses Date Provider Providers Copied on Encounter [facility], [address], [place], [place], [id number], [place] tel:[phone] SEC Ana Lomax No Information Mar-0 6-200 0 Charisma Alba. [address], [place], [address], [place]. tel:[phone] Family History Family Member Type Diagnosis Age At Onset No Information Payers Payer name Insurance type Covered alliance party ID Authoriza tion(s) [employer] SOI CI [id number] Social History Type Description Quantity Date Captured Comments Sex Female Smoking Status No Information Chief Complaint And Reason For Visit No Information Reason For Referral Reason For Referral No Information History Of Present Illness Encounter Date Complaint History Of Prese nt Illness No Information Functional Status Date Functional Assessmen t No Information Instructions Date Instruction Additional Infor mation No Information Assessments Type Assessment Date No Information Patient Care Teams Name Effective Dates (start - stop) Status Members No Information
--- NOTE | ~2025-01-16 | MM_ITS ---
EXAMINATION: MM screening marisol BI w barry HISTORY: Screening TECHNIQUE: Craniocaudal and mediolateral oblique 3-D tomosynthesis images were obtained and synthetic 2-D images were generated. CAD analysis was submitted and interpreted. COMPARISON: 12/18/2022 BREAST PARENCHYMAL COMPOSITION: The breasts are heterogeneously dense, which may obscure small masses. FINDINGS: There is no evidence of suspicious mass, calcification, or architectural distortion to suggest malignancy. There has been no suspicious interval change. IMPRESSION: 1. No mammographic evidence of malignancy. Recommend routine screening mammography in one year. BI-RADS Category 2: Benign finding(s) Reviewed, dictated and finalized at location Q. IMPRESSION: 1. No mammographic evidence of malignancy. Recommend routine screening mammogra phy in one year. BI-RADS Category 2: Benign finding(s)
--- OUTSIDE RECORDS SUMMARY | 2025-01-16 09:03 | XMS_ITS | Encounter Summary ---
Author Organization [facility] Address [address] [place] [address] Care Team Providers Care Senior Network Administrator Name Role Phone Alvin Fine MD Primary Care Provider +1- [phone] Encounter Details Date Type Department Care Team (Late st Contact Info) Description 12/01/2018 Lab Requisition [facility] DermPath Lab [address] [facility], [facility] [place] [address] Ric Rainey MD [address] [place] [address] Social History Tobacco Use Types Packs/Day Years Used Date Smoking Tobacco: Never Assessed Comments Unknown Sex and Gender Information Value Date Recorded Sex Assigned at Not on file 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 Gender Identity Not on file Sexual Orientation Not on file documented as of this encounter Plan of Treatment Not on file documented as of this encounter Procedures Procedure Name Priority Date/Time Associated Diagnosis Comments DERMATOPATHOLOGY Routine 11/30/2018 12:0 0 AM CDT documented in this encounter Results * DERMATOPATHOLOGY (11/30/2018 12:00 AM CDT) Case Report Dermatopathology Report Case: [id number] Authorizing Provider: Ric Rainey MD Collected: 11/30/2018 12:00 AM Ordering Location: [facility] Derm[facility] Lab Received: 12/01/2018 12:07 PM Pathologist: [...] specimen consists of a shave biopsy measuring [id number]. Jar 0. 4:20 PM T DERMATOPATHOLOGY LABORATORY [...] characteristic determined by the Dermatopathology Laboratory at [facility], directed by Dr. Alicia Estrada. These tests need not be, and therefore are not, approved by the [place] Food and Drug Administration. The tests are used for clinical purposes. Billing Codes Specimen Charges Stain Charges 96984 1 4:20 PM CDT DERMATOPATHOLOGY LABORATORY Embedded Images 4:20 PM CDT DERMATOPATHOLOGY LABORATORY Pathology/Cytolog y TISSUE SPECIMEN FROM SKIN / Unknown 11/30/2018 12/01/2018 12:07 PM CDT us Ric Rainey MD LAB - PATHOLOGY/CYTOLOGY ORD ERABLES Final Result DERMATOPATHOLOGY LABORATORY [facility] - Department of Dermatology [address] [place] [address], 5th [place] [address], [facility] [phone] documented in this encounter Visit Diagnoses Not on filedocumented in this encounter Care Teams Senior Network Administrator Relationship Specialty Start Date End Date Alvin Fine MD [address] [place] [phone] PCP - General 01/30/19 documented as of this encounter
--- OUTSIDE RECORDS SUMMARY | 2025-01-16 09:03 | XMS_ITS | Clinical Summary ---
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 Author [facility] On track( 018 1:45 PM CDT) No Young Hawkins, RN Note: Walk 1-2 miles with minimal pain. Insurance MEDICARE [facility] MEDICARE [facility] Care Teams Combination Man Relationship Specialty Start Date End Date Alvin Vallejo MD PCP - General 10/11/17
--- OUTSIDE RECORDS SUMMARY | 2025-01-16 09:03 | XMS_ITS | Patient Health Record ---
Author Organization [facility] Address [address] [place] [address] Care Team Providers Care Neurology Specialist Name Role Phone Jimy Pratt MD, Yves Primary Care Provider Yves Ahn Jr Unavailable Unavai lable ALLERGIES [...] right lower extremity (M79.604) 01/06/2019 Active confirmed [id number] PLAN OF TREATMENT No Information Insurance Providers Payer Name Payer Address Payer Phone Subscriber Number Group Number Insured Name Patient Relationship to Insured Coverage Start Date Coverage End Date Medicare [address] [place] [address] [id number] Chula Dewey Self - patient is the insured [facility] [address] [place] [address] [id number] Chula Dewey Self - patient is the insured MEDICAL (GENERAL) HISTORY Surgical History Surgery Date(Month/Year) Synovial cyst removal (L 07/07) 2013
--- OUTSIDE RECORDS SUMMARY | 2025-01-16 09:03 | XMS_ITS | Encounter Summary ---
Author Organization [facility] Address [address] [facility] [place] [address] Care Team Providers Care Heavy Antiarmor Weapons Infantryman Name Role Phone Alvin Fine MD Primary Care Provider +1- [phone] Encounter Details Date Type Department Care Team (Late st Contact Info) Description 12/01/2022 Lab Requisition [facility] - DermPath Lab [address] [facility] [place] [address] Ric Rainey MD [address] [place] [address] Social History Tobacco Use Types Packs/Day Years Used Date Smoking Tobacco: Never Assessed Comments Unknown Sex and Gender Information Value Date Recorded Sex Assigned at Not on file 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 Gender Identity Not on file Sexual Orientation Not on file documented as of this encounter Plan of Treatment Not on file documented as of this encounter Procedures Procedure Name Priority Date/Time Associated Diagnosis Comments DERMATOPATHOLOGY Routine 11/30/2022 12:0 0 AM CDT documented in this encounter Results * DERMATOPATHOLOGY (11/30/2022 12:00 AM CDT) Case Report Dermatopathology Report Case: [id number] Authorizing Provider: Ric Rainey MD Collected: 11/30/2022 12:00 AM Ordering Location: [facility] DermPath Lab Received: 12/02/2022 07:12 AM Pathologist: [...] specimen consists of a shave biopsy measuring [id number] mm. Jar 0. 3 4:56 PM CDT [...] characteristic determined by the Dermatopathology Laboratory at [facility], directed by Dr. Alicia Estrada. These tests need not be, and therefore are not, approved by the [place] Food and Drug Administration. The tests are used for clinical purposes. Billing Codes Specimen Charges Stain Charges 88208 1 3 4:56 PM CDT DERMATOPATHOLOGY LABORATORY Embedded Images 3 4:56 PM CDT DERMATOPATHOLOGY LABORATORY Pathology/Cytolog y TISSUE SPECIMEN FROM SKIN / Unknown 11/30/2022 12/02/2022 7:12 AM CDT us Ric Rainey MD LAB - PATHOLOGY/CYTOLOGY ORD ERABLES Final Result DERMATOPATHOLOGY LABORATORY [facility] - Department of Dermatology [address], [address] [phone] documented in this encounter Visit Diagnoses Not on filedocumented in this encounter Care Teams Heavy Antiarmor Weapons Infantryman Relationship Specialty Start Date End Date Alvin Fine MD [address] [place] [phone] PCP - General 01/30/19 documented as of this encounter
--- OUTSIDE RECORDS SUMMARY | 2025-01-16 09:03 | XMS_ITS | Clinical Summary ---
Author Organization [facility] Address [address] [facility] [place] [address] Care Team Providers Care Sanitation Truck Driver Name Role Phone Alvin Fine MD Primary Care Provider +1- [phone] Source Comments [facility],non-owned Affiliates and Associated Physician Practices is amultiple site organization consisting of ambulatory clinics and hospital sitesin [place], [place], [place] and [place]. This disclosure is being madepursuant to the Care Everywhere program and may not contain all information available regarding this patient. 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 Gender Identity Not on file Sexual Orientation [...] yrs (1 - 1-dose 75+ series) 09/24/2018 DEPRESSION SCREENING 04/04/2024 COVID-19 VACCINE ( - 2023-2 5 season) 2024 INFLUENZA VACCINE (#1) 2024 HEPATITIS B VACCINE Aged Out No [...] patient's age to complete this topic Insurance [employer] MEDICARE SUPPLEMENT MEDICARE [employer] MEDICARE SUPPLEMENT MEDICARE SUPPLEMENT PAYOR GENERIC SELF PAY NO INSURANCE Member Subscriber Plan / Payer (Ef fective for All Dates) Name:Flynn Joyce Pauline Member ID:Not on file Relation to Subscriber:Not on file Name:FLYNN JOYCE Subscriber ID:Not on file (Home) Address: [address] [place] [id number] Payer ID:Not on file Group ID:Not on file Type:Self Pay Address: [place], [place] Care Teams Sanitation Truck Driver Relationship Specialty Start Date End Date Alvin Fine MD [address] [place] [phone] PCP - General 01/30/19
--- OUTSIDE RECORDS SUMMARY | 2025-01-16 09:03 | XMS_ITS | Encounter Summary ---
Author Organization [facility] Address [address] [facility] [place] [address] Care Team Providers Care Mate First Name Role Phone Alvin Fine MD Primary Care Provider +1- [phone] Encounter Details Date Type Department Care Team (Late st Contact Info) Description 02/11/2022 Lab Requisition [facility] Derm[facility] Lab [address] [facility], [facility] [place] [address] Ric Rainey MD [address] [place] [address] Social History Tobacco Use Types Packs/Day Years Used Date Smoking Tobacco: Never Assessed Comments Unknown Sex and Gender Information Value Date Recorded Sex Assigned at Not on file 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 Gender Identity Not on file Sexual Orientation Not on file documented as of this encounter Plan of Treatment Not on file documented as of this encounter Procedures Procedure Name Priority Date/Time Associated Diagnosis Comments DERMATOPATHOLOGY Routine 02/10/2022 12:0 0 AM MANAGER MECHANICAL documented in this encounter Results * DERMATOPATHOLOGY (02/10/2022 12:00 AM MANAGER MECHANICAL) Case Report Dermatopathology Report Case: [id number] Authorizing Provider: Ric Rainey MD Collected: 02/10/2022 12:00 AM Ordering Location: [facility] Lab Received: 02/11/2022 01:54 PM Pathologist: Connie Estrada MD Specimen: Skin, left upper cut lip 2 2:35 PM MANAGER MECHANICAL DERMATOPATHOLOGY LABORATORY Final Diagnosis Specimen A. SKIN, left upper cut lip: BASAL CELL CARCINOMA, ERODED (C44.319) 2 2:35 PM [facility] DERMATOPATHOLOGY LABORATORY at [address] MANAGER MECHANICAL Clinical History R/O HAK,SCC 2 2:35 PM [facility] DERMATOPATHOLOGY LABORATORY Gross Description Specimen A: Received is one formalin filled container labeled with the patient's name and designated left upper cut lip. The specimen consists of a shave biopsy measuring [id number]. Jar 0. 2 2:35 PM [facility] DERMATOPATHOLOGY LABORATORY Microscopic Description Specimen A. SKIN, left upper cut lip: The epidermis is eroded. Within the dermis there are aggregates of basaloid cells with a high nuclear to cytoplasmic ratio and peripheral palisading. 2 2:35 PM [facility] DERMATOPATHOLOGY LABORATORY Disclaimer An external and internal positive and negative controls are appropriate for the histochemical, immunohistochemical and immunofluorescence stain(s) in this case (if any), except where stated explicitly. The performance characteristics of the stain(s) cited in this report were developed and its performance characteristic determined by the Dermatopathology Laboratory at [facility], directed by Dr. Alicia Estrada. These tests need not be, and therefore are not, approved by the [place] Food and Drug Administration. The tests are used for clinical purposes. Billing Codes Specimen Charges Stain Charges 92399 1 2 2:35 PM [facility] DERMATOPATHOLOGY LABORATORY Embedded Images 2 2:35 PM [facility] DERMATOPATHOLOGY LABORATORY Pathology/Cytolog y TISSUE SPECIMEN FROM SKIN / Unknown 02/10/2022 02/11/2022 1:54 PM MANAGER MECHANICAL Ric Rainey MD LAB - PATHOLOGY/CYTOLOGY ORD ERABLES Final Result DERMATOPATHOLOGY LABORATORY [facility] - Department of Dermatology [facility] [address] [place] [address], [address] [phone] documented in this encounter Visit Diagnoses Not on filedocumented in this encounter Care Teams Mate First Relationship Specialty Start Date End Date Alvin Fine MD [address] [place] [phone] PCP - General 01/30/19 documented as of this encounter
== END 2025-01-16 08:36 | disposition home or self-care (01) ==
LOC: ANHFOHIMG 08:39
PROVIDERS: PCP Internal Medicine; Visit Provider Internal Medicine
DX: Z12.31 Encounter for screening mammogram for malignant neoplasm of breast (principal)
CPT/HCPCS: 77063; 77067